=== PATIENT | female | born 1940 | race Caucasian/White ===

== ENCOUNTER 2016-10-11 13:15 | Inpatient (IN) | payer MEDICARE, OTHER ==
[~2016-10-11] VITALS: Ht 157.5 cm; Wt 61.7 kg
[~2016-10-11 13:15] MED LIST: ACET-3820 PO; ASPI81TA28 PO; CIPR500T4 PO; GABA100C PO; METF500T2 PO; METR250T2 PO; TRAM50TA94 PO
[2016-10-11 14:06] VITALS: BP 186/92
--- NOTE | 2016-10-11 17:08 | NUR ---
Patient taken to bed 06 via wheelchair per tech.
--- NOTE | 2016-10-11 17:17 | NUR ---
PT REFERRED TO ER FROM PCP FOR EVALUATION OF SOB X2 DAYS. HX DM, POLYARTHRALGIA, PULMONARY FIBROSIS.PT STATES SHE HAS LITTLE SOB;S/O OF GENERALIZED PAIN . DENIES N/V/D; SKIN IS PINK/WARM/DRY; AAOX4 WITH EVEN AND STEADY GAIT; HR EVEN AND REGULAR; PT DENIES ANY FEVER, CP AT THIS TIME; PATIENT STATES PAIN OF 6/10 AT THIS TIME; PATIENT POSITIONED FOR COMFORT; HOB ELEVATED; BEDRAILS UP X2; BED DOWN.ALL MONITORS IN PLACED.
--- NOTE | 2016-10-11 17:50 | NUR ---
Dr. Hassan evaluating patient.
[2016-10-11] MEDS ORDERED: NACL 0.9% 1,000 ML IV ONE (18:15)
[2016-10-11] MEDS ORDERED: POTASSIUM CHLORIDE 10 MEQ TABER PO ONE (18:15)
[2016-10-11] MEDS ORDERED: LEVOFLOXACIN 500 MG/D5W PREMIX 100 ML IV ONE (18:15)
[2016-10-11 18:30] LABS: BASOPHILS # (AUTO) 0.2 K/uL (0.00-0.22); EOSINOPHILS # (AUTO) 0.1 K/uL (0-0.4); HEMATOCRIT 42.5 % (36-48); HEMOGLOBIN 13.6 g/dL (12.0-16.0); LYMPHOCYTES # (AUTO) 1.9 K/uL (2.5-16.5); MEAN CORPUSCULAR HEMOGLOBIN 26 pg (27-31); MEAN CORPUSCULAR HGB CONC 32 g/dL (33-37); MEAN CORPUSCULAR VOLUME 81 fL (80-94); MONOCYTES # (AUTO) 0.4 K/uL (0.8-1.0); NEUTROPHILS # (AUTO) 2.9 K/uL (1.8-7.7); PLATELET COUNT (AUTO) 194 K/uL (140-450); RED BLOOD CELL COUNT(AUTO) 5.28 MIL/uL (4.20-5.40); RED CELL DISTRIBUTION WIDTH 15.7 % (11.6-13.7); WHITE BLOOD COUNT (AUTO) 5.5 K/uL (4.8-10.8)
--- NOTE | 2016-10-11 18:34 | NUR ---
PT WENT TO RESTROOM ACCOMPANIED BY EMT;
[2016-10-11 18:39] LABS: APPEARANCE,URINE HAZY (CLEAR); BLOOD, URINE TRACE-L (NEGATIVE); COLOR,URINE YELLOW (YELLOW); LEUKOCYTE ESTERASE ,URINE TRACE (NEGATIVE); NITRITE, URINE NEGATIVE (NEGATIVE); PH,URINE 5.5 (5.0-9.0); PROTEIN,URINE 1+ (NEGATIVE); UGLUCOSE NEGATIVE (NEGATIVE); UROBILINOGEN,URINE 0.2 EU/dL (0.2 - 1)
[2016-10-11 18:41] LABS: CARBON DIOXIDE 25.1 mmol/L (21-32); CHLORIDE 102 mmol/L (98-107); SODIUM SERUM 137 mmol/L (136-145)
[2016-10-11 18:42] LABS: ANION GAP 13.9 (8-16); CALCIUM 8.9 mg/dL (8.5-10.1); CREATININE 0.9 mg/dL (0.6-1.3); GLUCOSE 86 mg/dL (74-106); UREA NITROGEN, BLOOD 20 mg/dL (7-18)
[2016-10-11 18:46] LABS: BILIRUBIN,URINE NEGATIVE (NEGATIVE)
[2016-10-11 18:49] LABS: BACTERIA,URINE 4+ /HPF (None Seen); RBC,URINE 0-3 /HPF (0-5)
[2016-10-11 18:53] LABS: ALANINE AMINOTRANSFERASE 11 U/L (14-59); ALBUMIN 3.3 g/dL (3.4-5.0); ALKALINE PHOSPHATASE 79 U/L (46-116); ASPARTATE AMINOTRANSFERASE 20 U/L (15-37); TOTAL BILIRUBIN 0.7 mg/dL (0.0-1.0); TOTAL PROTEIN, SERUM 9.1 g/dL (6.4-8.2)
[2016-10-11] MEDS ORDERED: HYDROcodone/APAP 5/325 MG 1 TAB TAB PO PRN (19:10)
[2016-10-11] MEDS ORDERED: MORPHINE SULFATE 2 MG/ML SYR IVP PRN (19:10)
[2016-10-11] MEDS ORDERED: LORazepam 2 MG/ML VIAL IVP PRN (19:10)
[2016-10-11] MEDS ORDERED: ACETAMINOPHEN 325 MG TAB PO PRN (19:10)
[2016-10-11] MEDS ORDERED: ONDANSETRON 4 MG/2 ML VIAL IVP PRN (19:10)
[2016-10-11] MEDS ORDERED: ALBUTEROL 0.083% 2.5 MG/3 ML NEBU IH PRN (19:10)
--- NOTE | 2016-10-11 19:18 | NUR ---
Pt report given to JEANETH DIAZ. Transfer of care at this time.
--- NOTE | 2016-10-11 19:22 | NUR ---
RECEIVED REPORT FROM JEANETH STALEY FOR TRANSFER OF CARE.
--- NOTE | 2016-10-11 20:10 | NUR ---
Patient will be admitted to care of DR CERVANTES. Admited to TELE. Will go to room 112B. Belongings list completed. Report to JEANETH CAN.
--- NOTE | 2016-10-11 20:15 | NUR ---
PT ARRIVED TO UNIT VIA GURNEY. INITIAL ASSESSMENT COMPLETED. PT AAOX4. PT AMBULATES WITH ASSIST. PT'S SKIN IS INTACT. PT HAS IV ON LEFT AC G 20; ASYMPTOMATIC, PATENT AND INTACT INFUSING FLUIDS WELL. PT DENIES DISCOMFORT AT THIS TIME. ORIENTED PT TO ROOM AND SURROUNDINGS AND USE OF CALL LIGHT. EXPLAINED PLAN OF CARE TO PT AND SHE VERBALIZES UNDERSTANDING. WILL CONTINUE TO MONITOR PT.
--- NOTE | 2016-10-11 20:50 | NUR ---
PT'S BLOOD PRESSURE 180/88, HR 75, T 98.0. 02 SAT 95%. CALLED DR. CERVANTES WHO IS EPIC APPLICATION COORDINATOR FOR DR. MCCARTHY TO NOTIFY HIM OF BLOOD PRESSURE. ORDERS GIVEN NORVASC 10 MG PO DAILY AND ONE DOSE NOW. WILL FOLLOW UP ON ORDERS.
[2016-10-11] MEDS ORDERED: amLODIPine 5 MG TAB PO SCH (21:00)
--- NOTE | 2016-10-11 21:12 | NUR ---
NORVASC 10 MG PO GIVEN ORDERED BY DR. CERVANTES.
[2016-10-11] MEDS ORDERED: cefTRIAXone 1,000 MG VIAL ONE (21:22)
--- NOTE | 2016-10-11 22:26 | NUR ---
PT'S BLOOD PRESSURE IS NOW 178/88, HR 68, T 98.7 02 SAT 95%, R 18. DR. CERVANTES NOTIFIED; NO NEW ORDERS GIVEN.
[2016-10-12] VITALS: BP 153/69
--- NOTE | 2016-10-12 00:05 | NUR ---
PT'S BLOOD PRESSURE IS NOW 153/69, HR 75, T 98.7, R 20. WILL CONTINUE TO MONITOR PT.
--- NOTE | 2016-10-12 00:30 | NUR ---
PT REQUESTED A SANDWICH; SHE STATED SHE WAS HUNGRY. WILL CONTINUE TO MONITOR PT.
--- NOTE | 2016-10-12 03:29 | NUR ---
PT REQUESTING ASSISTANCE TO AMBULATE TO THE RESTROOM. PT BACK IN BED NOW. CALL LIGHT WITHIN REACH.
[2016-10-12 04:00] VITALS: BP 137/64
--- NOTE | 2016-10-12 04:05 | NUR ---
PT WEARING SCDS. EDUCATION PROVIDED REGARDING ON THE IMPORTANCE OF WEARING THEM. PT VERBALIZES UNDERSTANDING.
--- NOTE | 2016-10-12 05:24 | NUR ---
PT AMBULATED TO THE RESTROOM. NO SIGNS OF DISTRESS OR DISCOMFORT NOTED. WILL CONTINUE TO MONITOR PT.
[2016-10-12 05:43] LABS: BASOPHILS # (AUTO) 0.1 K/uL (0.00-0.22); EOSINOPHILS # (AUTO) 0.2 K/uL (0-0.4); EOSINOPHILS % (AUTO) 3.7 % (0.0-4.0); HEMATOCRIT 36.5 % (36-48); HEMOGLOBIN 11.8 g/dL (12.0-16.0); LYMPHOCYTES # (AUTO) 1.8 K/uL (2.5-16.5); LYMPHOCYTES % (AUTO) 30.8 % (20.5-51.1); MEAN CORPUSCULAR HEMOGLOBIN 26 pg (27-31); MEAN CORPUSCULAR HGB CONC 32 g/dL (33-37); MEAN CORPUSCULAR VOLUME 81 fL (80-94); MONOCYTES # (AUTO) 0.5 K/uL (0.8-1.0); MONOCYTES % (AUTO) 8.2 % (1.7-9.3); NEUTROPHILS # (AUTO) 3.4 K/uL (1.8-7.7); NEUTROPHILS % (AUTO) 56.3 % (42.2-75.2); PLATELET COUNT (AUTO) 179 K/uL (140-450); RED BLOOD CELL COUNT(AUTO) 4.53 MIL/uL (4.20-5.40); RED CELL DISTRIBUTION WIDTH 15.9 % (11.6-13.7)
[2016-10-12 06:13] LABS: ANION GAP 13.2 (8-16); CALCIUM 7.9 mg/dL (8.5-10.1); CARBON DIOXIDE 22.6 mmol/L (21-32); CHLORIDE 106 mmol/L (98-107); CREATININE 0.9 mg/dL (0.6-1.3); GLUCOSE 85 mg/dL (74-106); POTASSIUM 3.8 mmol/L (3.5-5.1); SODIUM SERUM 138 mmol/L (136-145); UREA NITROGEN, BLOOD 19 mg/dL (7-18)
--- NOTE | 2016-10-12 07:39 | NUR ---
ENDORSED PLAN OF CARE TO DAY SHIFT RN. PT IN STABLE CONDITION.
--- NOTE | 2016-10-12 07:40 | NUR ---
RECEIVED PT ON BED AWAKE. NO SOB NOTED. NO C/O PAIN AT THIS TIME. IV TO LT AC PATENT AND INTACT. CHEST CLEAR. ABDOMEN SOFT, BOWEL SOUNDS PRESENT. NO EDEMA NOTED. INSTRUCTED PT TO CALL FOR ASSISTANCE, CALL LIGHT WITHIN REACH, PT VERBALIZED UNDERSTANDING.
[2016-10-12 08:17] VITALS: BP 127/61
[2016-10-12] MEDS: ASPIRIN 81 MG TAB.CHEW PO SCH (09:27)
[2016-10-12] MEDS: amLODIPine 5 MG TAB PO SCH (09:27)
[2016-10-12] MEDS: ENOXAPARIN 40 MG/0.4 ML SYR SUBQ SCH (09:28)
--- NOTE | 2016-10-12 09:45 | NUR ---
PATIENT HAS BEEN SCREENED AND CATEGORIZED MODERATE NUTRITION RISK. PATIENT WILL BE SEEN WITHIN 3-5 DAYS OF ADMISSION. 10/14/16-10/16/[address]
--- NOTE | 2016-10-12 10:22 | NUR ---
FAXED INITIAL REVIEW TO [facility]. [phone] PHONE MERLY [phone]. SPOKE WITH MERLY AND SHE IS COVERING FOR [facility] TODAY AND TOMORROW. SHE SAID TO JUST SEND REVIEWS TO [facility].
--- NOTE | 2016-10-12 11:55 | NUR ---
PT AMBULATED TO THE BATHROOM WITH 1 PERSON ASSIST. ACTIVITY TOLERATED WELL. NO SOB NOTED.
[2016-10-12 12:00] VITALS: BP 141/67
[2016-10-12] MEDS ORDERED: MAG SULF 2000 MG/WATER PREMIX 50 ML IV SCH (14:00)
--- NOTE | 2016-10-12 14:00 | NUR ---
PT SEEN BY DR. MCCARTHY WITH NEW ORDERS FOR PHYSICAL THERAPY EVALUATION.
[2016-10-12 16:00] VITALS: BP 135/66
--- NOTE | 2016-10-12 16:55 | NUR ---
PT RESTING. NO SOB NOTED. NO COMPLAINTS MADE.
--- NOTE | 2016-10-12 19:05 | NUR ---
PT SITTING IN THE BEDSIDE COMMODE. NO SOB NOTED. NO SIGNS OF PAIN. WILL ENDORSE TO NEXT SHIFT NURSE FOR CONTINUITY OF CARE.
--- NOTE | 2016-10-12 19:20 | NUR ---
RECEIVED REPORT FROM JEANETH MORAN AT BEDSIDE. INITIAL ASSESSMENT COMPLETED. PT AAOX4. PT AMBULATES WITH ASSIST. PT'S SKIN IS INTACT. PT HAS IV ON LEFT AC G 20; ASYMPTOMATIC, PATENT AND INTACT INFUSING FLUIDS WELL. PT DENIES DISCOMFORT AT THIS TIME. ORIENTED PT TO ROOM AND SURROUNDINGS AND USE OF CALL LIGHT. EXPLAINED PLAN OF CARE TO PT AND SHE VERBALIZES UNDERSTANDING. WILL CONTINUE TO MONITOR PT.
[2016-10-12 20:00] VITALS: BP 148/73
--- NOTE | 2016-10-12 21:44 | NUR ---
PT WEARING SCDS. CALL LIGHT WITHIN REACH.
--- NOTE | 2016-10-12 22:25 | NUR ---
PT STABLE, PT WATCHING TV. CALL LIGHT WITHIN REACH.
[2016-10-13] VITALS: BP 149/68
--- NOTE | 2016-10-13 00:29 | NUR ---
CHECKED PT'S VS. VS STABLE; PT DENIES PAIN OR DISCOMFORT. CALL LIGHT WITHIN REACH.
--- NOTE | 2016-10-13 01:52 | NUR ---
ASSISTED PT TO AMBULATE TO THE RESTROOM. PT BACK IN BED NOW COMFORTABLY. CALL LIGHT WITHIN REACH.
--- NOTE | 2016-10-13 03:15 | NUR ---
CHECKED ON PT. PT SLEEPING COMFORTABLY. NO SIGNS OF DISTRESS OR DISCOMFORT NOTED. WILL CONTINUE TO MONITOR PT.
[2016-10-13 04:00] VITALS: BP 141/74
[2016-10-13 05:46] LABS: BASOPHILS # (AUTO) 0.1 K/uL (0.00-0.22); EOSINOPHILS # (AUTO) 0.2 K/uL (0-0.4); EOSINOPHILS % (AUTO) 3.2 % (0.0-4.0); HEMATOCRIT 36.7 % (36-48); HEMOGLOBIN 12.1 g/dL (12.0-16.0); LYMPHOCYTES # (AUTO) 2.2 K/uL (2.5-16.5); LYMPHOCYTES % (AUTO) 34.1 % (20.5-51.1); MEAN CORPUSCULAR HEMOGLOBIN 27 pg (27-31); MEAN CORPUSCULAR HGB CONC 33 g/dL (33-37); MEAN CORPUSCULAR VOLUME 81 fL (80-94); MONOCYTES # (AUTO) 0.5 K/uL (0.8-1.0); MONOCYTES % (AUTO) 7.8 % (1.7-9.3); NEUTROPHILS # (AUTO) 3.3 K/uL (1.8-7.7); NEUTROPHILS % (AUTO) 53.9 % (42.2-75.2); PLATELET COUNT (AUTO) 169 K/uL (140-450); RED BLOOD CELL COUNT(AUTO) 4.51 MIL/uL (4.20-5.40); RED CELL DISTRIBUTION WIDTH 15.6 % (11.6-13.7); WHITE BLOOD COUNT (AUTO) 6.4 K/uL (4.8-10.8)
--- NOTE | 2016-10-13 05:50 | NUR ---
PT USING BEDSIDE COMMODE, PT STABLE. WILL CONTINUE TO MONITOR PT.
[2016-10-13 06:29] LABS: ALANINE AMINOTRANSFERASE 8 U/L (14-59); ALBUMIN 2.7 g/dL (3.4-5.0); ALKALINE PHOSPHATASE 69 U/L (46-116); ANION GAP 9.8 (8-16); ASPARTATE AMINOTRANSFERASE 16 U/L (15-37); CALCIUM 7.6 mg/dL (8.5-10.1); CHLORIDE 103 mmol/L (98-107); CREATININE 0.8 mg/dL (0.6-1.3); GLUCOSE 100 mg/dL (74-106); POTASSIUM 3.8 mmol/L (3.5-5.1); SODIUM SERUM 134 mmol/L (136-145); TOTAL BILIRUBIN 0.4 mg/dL (0.0-1.0); TOTAL PROTEIN, SERUM 7.7 g/dL (6.4-8.2); UREA NITROGEN, BLOOD 20 mg/dL (7-18)
--- NOTE | 2016-10-13 07:20 | NUR ---
ASSUMED CONTINUITY OF CARE. NO SIGNS AND SYMPTOMS OF ACUTE DISTRESS NOTED, INITIAL ASSESSMENT DONE. KEEP COMFORTABLE ON BED. EXPLAINED DIAGNOSIS, PLAN OF CARE, PAIN MANAGEMENT TEACHING, USE OF CALL LIGHT/BED/TV/BATHROOM. VERBALIZED UNDERSTANDING. FALL PRECAUTION APPLIED. CALL LIGHT WITHIN REACH.
--- NOTE | 2016-10-13 07:20 | NUR ---
ENDORSED PLAN OF CARE TO DAY SHIFT NURSE. PT IN STABLE CONDITION.
--- NOTE | 2016-10-13 07:30 | NUR ---
Patient's Plan of Care was discussed and reviewed with RESEARCH PROFESSOR OF BIOSTATISTICS: TOMMY KENDRICK
[2016-10-13 08:00] VITALS: BP 136/63
--- NOTE | 2016-10-13 08:38 | NUR ---
PT VIOLETA CAME FOR PT. PT EVAL AND TREATMENT.
[2016-10-13] MEDS: ASPIRIN 81 MG TAB.CHEW PO SCH (08:40)
[2016-10-13] MEDS: amLODIPine 5 MG TAB PO SCH (08:41)
[2016-10-13] MEDS: ENOXAPARIN 40 MG/0.4 ML SYR SUBQ SCH (08:45)
--- NOTE | 2016-10-13 10:39 | NUR ---
Social Service Note: I met with patient at bedside. Patient Urdu speaking. Per patient, she would like to return home upon discharge, no short term snf placement, prefers to have home health services, case sealer Good greer.
[2016-10-13 12:00] VITALS: BP 122/54
--- NOTE | 2016-10-13 12:53 | NUR ---
NOTIFIED DR. MCCARTHY REGARDING RESULT OF URINE CULTURE MDRO, AWARE OF THE RESULT.
--- NOTE | 2016-10-13 15:00 | NUR ---
PT. AKIN CHI CAME. PT. AND PT. AKIN CHI WANTED PT. TO BE D/C HOME AND DELIVER FRONT WHEEL WALKER TO [facility]. EXPLAINED PT. AND PT. AKIN CHI ABOUT MD D/C ORDER, D/C INSTRUCTION AND TEACHING, MD FOLLOW-UP, PAIN PAIN MANAGEMENT TEACHING, DIAGNOSIS, DIET. PT. AND PT. AKIN CHI VERBALIZED UNDERSTANDING.
--- NOTE | 2016-10-13 15:35 | NUR ---
D/C VIA WHEELCHAIR WITH ASSISTANCE FROM DANIELLE DIALLO, ACCOMPANIED BY PT. AKIN CampbellBARNEY. AWAKE, ALERT, AND OREINTED X3. SPEECH CLEAR. NO C/O PAIN. NO SOB, NOTED. IN STABLE CONDITION. INFORMED CHARGE NURSE ROMEO HANSEN.
--- NOTE | 2016-10-13 15:42 | NUR ---
CM NOTE CONFIRMED W/ SALLY MORELAND FOR [facility]. TO BE DELIVERED AT NEW ADDRESS BY TOMORROW. TOMMY ERIC MADE AWARE.
== END 2016-10-13 15:35 | disposition home health service (06) | DRG 197 ==
LOC: MED 13:15 → UNDOADMIN 19:12 → MTU 19:12
PROVIDERS: ADMIT Hospitalist; ATTEND Hospitalist
DX: J84.10 Pulmonary fibrosis, unspecified (principal); N39.0 Urinary tract infection, site not specified; I10 Essential (primary) hypertension; E11.9 Type 2 diabetes mellitus without complications; Z95.1 Presence of aortocoronary bypass graft; I25.10 Atherosclerotic heart disease of native coronary artery without angina pectoris; Z79.2 Long term (current) use of antibiotics; Z79.82 Long term (current) use of aspirin; Z79.899 Other long term (current) drug therapy; Z87.891 Personal history of nicotine dependence
CPT/HCPCS: 36415; 71010; 71260; 80048; 80053; 81001; 82550; 82553; 83605; 83735; 84484; 85025; 87081; 87086; 87186; 97116; 99285; J0696; J1650; J1956; J3475; J7030; J7060; Q9967

== ENCOUNTER 2017-06-05 11:32 | Inpatient (IN) | payer MEDICARE, OTHER ==
[~2017-06-05] VITALS: Ht 160 cm; Wt 54.4 kg
[~2017-06-05 11:32] MED LIST changes: -ACET-3820 PO; +ACET-9528 PO; +ASPI81EC PO; -ASPI81TA28 PO; -METR250T2 PO; +TRAM50TA1 PO; -TRAM50TA94 PO
[2017-06-05 11:36] VITALS: BP 116/62
--- NOTE | 2017-06-05 11:46 | NUR ---
PT TO BED 2 VIZ WHEELCHAIR
--- NOTE | 2017-06-05 11:48 | NUR ---
GRANDDTR BRINGS IN PT VIA W/C FOR GENERALIZED WEAKNESS, DIZZINESS AND DECREASED APPETITE X 2 DAYS. PT C/O SOB SINCE LAST NIGHT. DENIES FEVERS/CHILLS. ALSO REPORTS CONGESTION/COUGH. PT AAOX3. DENIES N/V/D; PT CAME IN VIA WHEELCHAIR . DENIES FEVER, CP AT THIS TIME; PATIENT STATES PAIN OF 0/10 AT THIS TIME; VSS; PATIENT POSITIONED FOR COMFORT; HOB ELEVATED; BEDRAILS UP X2; BED DOWN. ER MD MADE AWARE OF PT STATUS.
--- NOTE | 2017-06-05 12:04 | NUR ---
DR. BAKER EVALUATING AT BEDSIDE
[2017-06-05] MEDS ORDERED: NACL 0.9% 1,000 ML IV SCH (12:06)
--- NOTE | 2017-06-05 12:22 | NUR ---
XRAY AT BEDSIDE
--- NOTE | 2017-06-05 12:50 | NUR ---
PT REFUSED TO INSERT MCKENZIE CATH, AWARE. PT AGREES TO USE IN AND OUT CATH TO GET URINE SAMPLE.
[2017-06-05 12:52] LABS: BASOPHILS # (AUTO) 0.2 K/uL (0.00-0.22); BASOPHILS % (AUTO) 1.8 % (0.0-2.0); EOSINOPHILS % (AUTO) 0.3 % (0.0-4.0); HEMOGLOBIN 12.8 g/dL (12.0-16.0); LYMPHOCYTES # (AUTO) 1.4 K/uL (2.5-16.5); MEAN CORPUSCULAR HEMOGLOBIN 26 pg (27-31); MEAN CORPUSCULAR HGB CONC 32 g/dL (33-37); MEAN CORPUSCULAR VOLUME 80 fL (80-94); MONOCYTES # (AUTO) 0.3 K/uL (0.8-1.0); MONOCYTES % (AUTO) 3.7 % (1.7-9.3); NEUTROPHILS # (AUTO) 7.4 K/uL (1.8-7.7); NEUTROPHILS % (AUTO) 79.2 % (42.2-75.2); PLATELET COUNT (AUTO) 161 K/uL (140-450); RED CELL DISTRIBUTION WIDTH 15.5 % (11.6-13.7); WHITE BLOOD COUNT (AUTO) 9.3 K/uL (4.8-10.8)
[2017-06-05] MEDS ORDERED: ALBUTEROL 0.083% 2.5 MG/3 ML NEBU INH ONE (13:05)
[2017-06-05] MEDS ORDERED: LEVOFLOXACIN 500 MG/D5W PREMIX 100 ML IV ONE (13:05)
[2017-06-05] MEDS ORDERED: IPRATROPIUM 0.02% 0.5 MG/2.5 ML NEBU INH ONE (13:05)
[2017-06-05 13:15] LABS: ANION GAP 10.2 (8-16); CARBON DIOXIDE 25.4 mmol/L (21-32); CHLORIDE 101 mmol/L (98-107); GLUCOSE 121 mg/dL (74-106); POTASSIUM 3.6 mmol/L (3.5-5.1); SODIUM SERUM 133 mmol/L (136-145); UREA NITROGEN, BLOOD 40 mg/dL (7-18)
[2017-06-05 13:21] LABS: ALBUMIN 2.5 g/dL (3.4-5.0); ASPARTATE AMINOTRANSFERASE 26 U/L (15-37); TOTAL BILIRUBIN 0.5 mg/dL (0.0-1.0)
[2017-06-05 13:23] LABS: PROTHROMBIN TIME 11.5 secs (10.8-13.4)
[2017-06-05] MEDS ORDERED: OSELTAMIVIR PHOSPHATE 75 MG CAP PO ONE (13:30)
[2017-06-05] MEDS ORDERED: ACETAMINOPHEN 325 MG TAB PO PRN (13:40)
[2017-06-05] MEDS ORDERED: LEVOFLOXACIN 750 MG/D5W PREMIX 150 ML IV SCH (13:40)
[2017-06-05] MEDS ORDERED: ALBUTEROL 0.083% 2.5 MG/3 ML NEBU INH PRN (13:40)
--- NOTE | 2017-06-05 13:41 | NUR ---
RT AT BEDSIDE
[2017-06-05] MEDS ORDERED: HYDROcodone/APAP 5/325 MG 1 TAB TAB PO PRN (13:45)
--- NOTE | 2017-06-05 14:24 | NUR ---
ZITHROMAX 500 MG IN D5 250ML IVPB GIVEN TO PATIENT. PATIENT TOLERATED IT WELL. CHIQUITA GRIGGS AT BEDSIDE. SAFETY PRECAUTION IN PLACE, CALL LIGHT WITHIN REACH, WILL CONTINUE TO MONITOR PATIENT. Addendum: 06/06/17 at 0749 by Keven Leung RN WRONG TIME: [id number]
--- NOTE | 2017-06-05 14:40 | NUR ---
TRANSFERRED PT TO TELE 107 B, REPORT GIVEN TO STEFFANY ERIC. PT VITALS STABLE AT THIS TIME.
[2017-06-05 14:44] LABS: APPEARANCE,URINE CLEAR (CLEAR); BILIRUBIN,URINE NEGATIVE (NEGATIVE); BLOOD, URINE NEGATIVE (NEGATIVE); COLOR,URINE YELLOW (YELLOW); LEUKOCYTE ESTERASE ,URINE NEGATIVE (NEGATIVE); NITRITE, URINE NEGATIVE (NEGATIVE); UGLUCOSE NEGATIVE (NEGATIVE)
[2017-06-05 14:45] VITALS: BP 118/58
[2017-06-05] MEDS ORDERED: DEXTROSE 50% 50 ML SYR IVP PRN (14:45)
[2017-06-05] MEDS ORDERED: INSULIN LISPRO SLIDING SCALE 100 UNITS/ML VIAL SUBQ PRN (14:45)
--- NOTE | 2017-06-05 14:45 | NUR ---
PATIENT ARRIVED ON FLOOR VIA GURNEY ACCOMPANIED BY ER NURSE AND TECH. REPORT RECEIVED AT BEDSIDE FOR CONTINUITY OF CARE FROM ER NURSE. PATIENT ALERT AND ORIENTED. BANGLADESHI SPEAKING ONLY. HERE FOR OBSERVATION FOR DX OF PNA. PATIENT HAS L HAND 20G, INFUSING IVF. IV PATENT, ASYMPTOMATIC, AND INTACT. SKIN INTACT, CRACKLES ON AUSCULTATION OF LUNGS SOUNDS, BOWEL SOUNDS ACTIVE. NO SIGNS OF DISTRESS OR SOB NOTED, PATIENT ON 2L O2 NC, SATURATION AT 95%. TELE MONITOR PUT ON, YELLOW SOCKS PUT ON. ORIENTED PATIENT TO ROOM, CALL LIGHT, AND PHONE. FAMILY MEMBERS AT BEDSIDE. INITIAL ASSESSMENT DONE. WILL AWAIT FOR DOCTOR'S UPCOMING ORDERS. SAFETY PRECAUTION IN PLACE, CALL LIGHT WITHIN REACH, WILL CONTINUE TO MONITOR PATIENT.
[2017-06-05 16:00] VITALS: BP 123/77
[2017-06-05] MEDS: AZITHROMYCIN 500 MG in DEXTROSE 5% 250 ML IV SCH (16:24)
[2017-06-05] MEDS: BLOOD GLUCOSE MONITORING 1 DEV DEV FS SCH ×2 (17:02→21:38)
--- NOTE | 2017-06-05 17:24 | NUR ---
ZITHROMAX 500 MG IN D5 250ML IVPB FINISHED. GRANDDAUGHTER ANSON AT BEDSIDE. SAFETY PRECAUTION IN PLACE, CALL LIGHT WITHIN REACH, WILL CONTINUE TO MONITOR PATIENT.
[2017-06-05] MEDS: BENZONATATE 100 MG CAPLF PO SCH (18:26)
--- NOTE | 2017-06-05 18:26 | NUR ---
ROCEPHIN 1000 MG IN D5 50 ML IVPB GIVEN TO PATIENT. BENZONATATE PO ADMINISTERED TO PATIENT. PATIENT TOLERATED IT WELL. GRANDDAUGHTER ANSON AT BEDSIDE. SAFETY PRECAUTION IN PLACE, CALL LIGHT WITHIN REACH, WILL CONTINUE TO MONITOR PATIENT.
--- NOTE | 2017-06-05 19:06 | NUR ---
ROCEPHIN 1000 MG IN D5 50 ML IVPB FINISHED. PATIENT RESTING IN BED, NOW SALINE LOCKED. SAFETY PRECAUTION IN PLACE, CALL LIGHT WITHIN REACH, WILL CONTINUE TO MONITOR PATIENT.
[2017-06-05] MEDS: ALBUTEROL 0.083% 2.5 MG/3 ML NEBU INH SCH (19:11)
--- NOTE | 2017-06-05 19:15 | NUR ---
REPORT GIVEN TO NOUGAT CANDY MAKER HELPER NURSE AT BEDSIDE FOR CONTINUITY OF CARE. PATIENT IN STABLE CONDITION.
--- NOTE | 2017-06-05 19:19 | NUR ---
RECEIVED PT FROM STEFFANY RN PT POLISH SPEAKER AAOX4 ON BED REST HL ON LEFT HAND PATENT ONTELMETRY SR ON 04 28 LTS VIA NC RESP THERAPY IS HERE AND GIVE BREATHING TX REPOSITIONED INITIAL ASSESSMENT DONE
--- NOTE | 2017-06-05 19:20 | NUR ---
RECEIVED PT FROM STEFFANY RN PT GHANAIAN SPEAKER AAOX4 ON BED REST HL ON LEFT HAND PATENT ON TELEMETRY SR PTUSING BED HOOVER VOIDING WELL ON 04 28 LTS VIA NC NOT DISTRESS NOTED AT THIS TIME RESP THERAPY IS HERE GIVING BREATHIN TX INITIAL ASSESSMENT DONE
[2017-06-05 20:00] VITALS: BP 110/58
--- NOTE | 2017-06-05 20:49 | NUR ---
BLOOD SUGAR 110 NOT COVERAGE
[2017-06-05] MEDS ORDERED: PNEUMOCOCCAL VACCINE 23 MCG/0.5 ML VIAL IMVAC PRN (21:10)
--- NOTE | 2017-06-05 21:30 | NUR ---
BLOOD SUGAR TEST 110 PT EATING HER HS SNACK WELL ON TELEMETRY SR
[2017-06-05] MEDS: GABAPENTIN 300 MG CAP PO SCH (21:39)
--- NOTE | 2017-06-05 22:00 | NUR ---
PT USING BED HOOVER VOIDING WELL ON TELE SR DON SOB NOTED
[2017-06-06] VITALS: BP 138/64
[2017-06-06] MEDS: ALBUTEROL 0.083% 2.5 MG/3 ML NEBU INH SCH ×4 (00:58→18:54)
--- NOTE | 2017-06-06 02:57 | NUR ---
PT HAS ALEXSANDER ASSISTING USING BED HOOVER CONTINENT NOT DISTRESS NOTED HL ON LEFT HAND PATENT SR ON TELEMETRY
[2017-06-06 04:00] VITALS: BP 100/44
--- NOTE | 2017-06-06 05:00 | NUR ---
PT REPOSITIONED NOT DISTRESS NOTED ON TELE SR
--- NOTE | 2017-06-06 05:35 | NUR ---
AT 0535 BLOOD SUGAR 97
[2017-06-06] MEDS: BLOOD GLUCOSE MONITORING 1 DEV DEV FS SCH ×4 (07:16→20:51)
[2017-06-06 07:19] LABS: BASOPHILS # (AUTO) 0.1 K/uL (0.00-0.22); BASOPHILS % (AUTO) 2.1 % (0.0-2.0); EOSINOPHILS # (AUTO) 0.1 K/uL (0-0.4); EOSINOPHILS % (AUTO) 0.9 % (0.0-4.0); HEMATOCRIT 33.3 % (36-48); HEMOGLOBIN 11.1 g/dL (12.0-16.0); LYMPHOCYTES # (AUTO) 1.4 K/uL (2.5-16.5); MEAN CORPUSCULAR HEMOGLOBIN 26 pg (27-31); MEAN CORPUSCULAR HGB CONC 33 g/dL (33-37); MEAN CORPUSCULAR VOLUME 79 fL (80-94); MONOCYTES # (AUTO) 0.5 K/uL (0.8-1.0); NEUTROPHILS # (AUTO) 4.5 K/uL (1.8-7.7); PLATELET COUNT (AUTO) 157 K/uL (140-450); RED CELL DISTRIBUTION WIDTH 14.8 % (11.6-13.7); WHITE BLOOD COUNT (AUTO) 6.6 K/uL (4.8-10.8)
--- NOTE | 2017-06-06 07:21 | NUR ---
PT REMAIN STBLE NOT DISTRESS NOTED REPORT GIVEN TO [place] TO CONTINUITY OF CARE
--- NOTE | 2017-06-06 07:22 | NUR ---
RECEIVED REPORT FROM WHITE SOURER NURSE AT BEDSIDE FOR CONTINUITY OF CARE. PATIENT ASLEEP, BUT AROUSABLE. BULGARIAN SPEAKING ONLY. PATIENT HAS L HAND 20G, SALINE LOCK. IV PATENT, ASYMPTOMATIC, AND INTACT. SKIN INTACT, NO SIGNS OF DISTRESS OR SOB NOTED, PATIENT ON 2L O2 NC, SATURATION AT 98%. SAFETY AND ISOLATION PRECAUTION AND IN PLACE, CALL LIGHT WITHIN REACH, WILL CONTINUE TO MONITOR PATIENT.
[2017-06-06 07:27] LABS: ANION GAP 12.6 (8-16); ASPARTATE AMINOTRANSFERASE 17 U/L (15-37); CARBON DIOXIDE 24.8 mmol/L (21-32); CHLORIDE 102 mmol/L (98-107); CREATININE 0.9 mg/dL (0.6-1.3); GLUCOSE 111 mg/dL (74-106); POTASSIUM 3.4 mmol/L (3.5-5.1); SODIUM SERUM 136 mmol/L (136-145); TOTAL BILIRUBIN 0.4 mg/dL (0.0-1.0); UREA NITROGEN, BLOOD 25 mg/dL (7-18)
[2017-06-06 08:00] VITALS: BP 108/41
[2017-06-06] MEDS ORDERED: metFORMIN 500 MG TAB PO SCH (08:46)
[2017-06-06] MEDS ORDERED: ASPIRIN 81 MG TAB.CHEW PO SCH (09:00)
[2017-06-06] MEDS: GABAPENTIN 300 MG CAP PO SCH ×2 (10:08→20:54)
[2017-06-06] MEDS: ASPIRIN 81 MG TAB.CHEW PO SCH (10:08)
[2017-06-06] MEDS: BENZONATATE 100 MG CAPLF PO SCH ×3 (10:09→17:00)
--- NOTE | 2017-06-06 10:09 | NUR ---
ORDERED MEDICATION ADMINISTERED. PATIENT TOLERATED THEM WELL. PATIENT RESTING IN BED, RESPIRATIONS EVEN AND UNLABORED. NO SIGNS OF DISTRESS OR SOB NOTED. SAFETY AND ISOLATION PRECAUTION IN PLACE, BED ON LOWEST SETTING, BED ALARM ON, CALL LIGHT WITHIN REACH. WILL CONTINUE TO MONITOR PATIENT.
[2017-06-06] MEDS: ENOXAPARIN 40 MG/0.4 ML SYR SUBQ SCH (10:14)
--- NOTE | 2017-06-06 11:29 | NUR ---
PATIENT HAS BEEN SCREENED AND CATEGORIZED MODERATE NUTRITION RISK. PATIENT WILL BE SEEN WITHIN 3-5 DAYS OF ADMISSION. 06/08/17 - 06/10/[address]
[2017-06-06 12:00] VITALS: BP 115/51
[2017-06-06] MEDS ORDERED: POTASSIUM CHLORIDE 10 MEQ TABER PO SCH (12:00)
--- NOTE | 2017-06-06 12:41 | NUR ---
ORDERED MEDICATION ADMINISTERED. PATIENT TOLERATED THEM WELL. PATIENT RESTING IN BED, RESPIRATIONS EVEN AND UNLABORED. NO SIGNS OF DISTRESS OR SOB NOTED. GRANDDAUGHTERS AT BEDSIDE. EDUCATED THEM ABOUT ISOLATION PROTOCOL WITH GOWNS AND GLOVES DUE TO PATIENT'S CONTACT ISOLATION D/T HX OF MDRO IN THE URINE. THEY VERBALIZED UNDERSTANDING. SAFETY AND ISOLATION PRECAUTION IN PLACE, BED ON LOWEST SETTING, BED ALARM ON, CALL LIGHT WITHIN REACH. WILL CONTINUE TO MONITOR PATIENT.
--- NOTE | 2017-06-06 14:10 | NUR ---
PATIENT RESTING IN BED, RESPIRATIONS EVEN AND UNLABORED. NO SIGNS OF DISTRESS OR SOB NOTED. SAFETY AND ISOLATION PRECAUTION IN PLACE, BED ON LOWEST SETTING, BED ALARM ON, CALL LIGHT WITHIN REACH. WILL CONTINUE TO MONITOR PATIENT.
[2017-06-06 15:08] LABS: BASOPHILS # (AUTO) 0.3 K/uL (0.00-0.22); EOSINOPHILS # (AUTO) 0.1 K/uL (0-0.4); HEMATOCRIT 34.8 % (36-48); HEMOGLOBIN 11.2 g/dL (12.0-16.0); LYMPHOCYTES # (AUTO) 2.1 K/uL (2.5-16.5); MEAN CORPUSCULAR HEMOGLOBIN 26 pg (27-31); MEAN CORPUSCULAR HGB CONC 32 g/dL (33-37); MEAN CORPUSCULAR VOLUME 80 fL (80-94); MONOCYTES # (AUTO) 0.5 K/uL (0.8-1.0); NEUTROPHILS # (AUTO) 4.3 K/uL (1.8-7.7); PLATELET COUNT (AUTO) 156 K/uL (140-450); RED BLOOD CELL COUNT(AUTO) 4.37 MIL/uL (4.20-5.40); RED CELL DISTRIBUTION WIDTH 15.4 % (11.6-13.7); WHITE BLOOD COUNT (AUTO) 7.3 K/uL (4.8-10.8)
[2017-06-06] MEDS: AZITHROMYCIN 500 MG in DEXTROSE 5% 250 ML IV SCH (15:59)
[2017-06-06 16:00] VITALS: BP 105/52
--- NOTE | 2017-06-06 16:00 | NUR ---
AZITHROMYCIN IVPB ADMINISTERED. PATIENT TOLERATING IT WELL. PATIENT RESTING IN BED, GRANDDAUGHTERS AT BEDSIDE. RESPIRATIONS EVEN AND UNLABORED. NO SIGNS OF DISTRESS OR SOB NOTED. SAFETY AND ISOLATION PRECAUTION IN PLACE, BED ON LOWEST SETTING, BED ALARM ON, CALL LIGHT WITHIN REACH. WILL CONTINUE TO MONITOR PATIENT.
--- NOTE | 2017-06-06 17:10 | NUR ---
ROCEPHIN IVPB ADMINISTERED. PATIENT TOLERATING IT WELL. PATIENT RESTING IN BED, GRANDDAUGHTERS AT BEDSIDE. RESPIRATIONS EVEN AND UNLABORED. NO SIGNS OF DISTRESS OR SOB NOTED. SAFETY AND ISOLATION PRECAUTION IN PLACE, BED ON LOWEST SETTING, BED ALARM ON, CALL LIGHT WITHIN REACH. WILL CONTINUE TO MONITOR PATIENT. Addendum: 06/06/17 at 1933 by Keven Leung RN EXPLAINED TO PATIENT THAT WE NEED A SPUTUM CULTURE. PATIENT VERBALIZED UNDERSTANDING.
--- NOTE | 2017-06-06 17:37 | NUR ---
FAXED INITIAL REVIEW TO [facility] [phone] PHONE [phone]
--- NOTE | 2017-06-06 19:10 | NUR ---
REPORT GIVEN TO SPLIT AND DRUM ROOM SUPERVISOR NURSE AT BEDSIDE FOR CONTINUITY OF CARE. PATIENT IN STABLE CONDITION.
--- NOTE | 2017-06-06 19:15 | NUR ---
RECEIVED PT FROM STEFFANY RN PT LUXEMBOURGISH SPEAKER AAOX4 NOT DISTRESS NOTED, RESTING ON BED ON TELEMETRY SR RELATIVES AT BED SIDE INITIAL ASSESSMENT DONE
[2017-06-06 20:00] VITALS: BP 129/61
--- NOTE | 2017-06-06 21:30 | NUR ---
BLOOD SUGAR 127 PT REMAIN STABLE AT THIS TIME NOT SOB NOTED ON TELEMETRY SR
[2017-06-07] VITALS: BP 136/67
--- NOTE | 2017-06-07 | NUR ---
PT SLEEPING WELL NOT DISTRESS NOTE, ON TELEMETRY SR HL ON LEFT HAND PATENT REPOSITIONED Q2H
[2017-06-07] MEDS: ALBUTEROL 0.083% 2.5 MG/3 ML NEBU INH SCH ×3 (01:40→13:00)
[2017-06-07 04:00] VITALS: BP 114/58
--- NOTE | 2017-06-07 04:00 | NUR ---
SPONGE BATH GIVEN LINEN CHANGED NOT DISTRESS NOTED ON TELEMETRY SR
[2017-06-07] MEDS: BLOOD GLUCOSE MONITORING 1 DEV DEV FS SCH ×2 (05:30→11:47)
--- NOTE | 2017-06-07 06:44 | NUR ---
PT REMAIN STABLE WILL BE ENDORSED TO DAY SHIFT FOR CONTINUITY OF CARE
[2017-06-07 07:02] LABS: ANION GAP 11.2 (8-16); CARBON DIOXIDE 24.7 mmol/L (21-32); CHLORIDE 103 mmol/L (98-107); CREATININE 0.8 mg/dL (0.6-1.3); GLUCOSE 119 mg/dL (74-106); POTASSIUM 3.9 mmol/L (3.5-5.1); SODIUM SERUM 135 mmol/L (136-145); UREA NITROGEN, BLOOD 22 mg/dL (7-18)
--- NOTE | 2017-06-07 07:10 | NUR ---
ASSUMED CONTINUITY OF CARE. NO SIGNS AND SYMPTOMS OF ACUTE DISTRESS NOTED. INITIAL ASSESSMENT DONE. KEEP COMFORTABLE ON BED. EXPLAINED DIAGNOSIS, PLAN OF CARE, PAIN MANAGEMENT TEACHING, USE OF CALL LIGHT/BED/TV/BATHROOM. VERBALIZED UNDERSTANDING. FALL PRECAUTION APPLIED. CALL LIGHT WITHIN REACH.
[2017-06-07 08:00] VITALS: BP 123/55
[2017-06-07] MEDS ORDERED: metFORMIN 500 MG TAB PO SCH (08:00)
--- NOTE | 2017-06-07 08:00 | NUR ---
Patient's Plan of Care was discussed and reviewed with ANIMAL FEEDER: TOMMY Posada
[2017-06-07] MEDS: BENZONATATE 100 MG CAPLF PO SCH ×2 (08:21→13:53)
[2017-06-07] MEDS: ASPIRIN 81 MG TAB.CHEW PO SCH (08:21)
[2017-06-07] MEDS: ENOXAPARIN 40 MG/0.4 ML SYR SUBQ SCH (08:25)
[2017-06-07] MEDS ORDERED: GABAPENTIN 100 MG CAP PO SCH ×2 (08:30→09:00)
--- NOTE | 2017-06-07 09:35 | NUR ---
DR. BEASLEY SEEN PT. AND SPOKE TO PT. AT BEDSIDE REGARDING PT. D/C.
[2017-06-07] MEDS ORDERED: LEVO500T98 PO (09:49)
[2017-06-07 10:12] LABS: LACTATE DEHYDROGENASE 192 IU/L (119-226)
--- NOTE | 2017-06-07 10:20 | NUR ---
PHYSICAL THERAPIST CAME FOR PT. EVAL AND TREATMENT.
--- NOTE | 2017-06-07 11:10 | NUR ---
UNDERWRITING OPERATIONS MANAGER JHONATAN CAME AND SPOKE TO PT. AT BEDSIDE.
[2017-06-07 12:00] VITALS: BP 117/53
--- NOTE | 2017-06-07 12:29 | NUR ---
CM NOTE PER [facility] PH# [phone], REVIEWS SHOULD BE SENT TO BOTH [facility] AND [facility]. PER [facility] PH# [phone], IF PATIENT WILL NEED HOME HEALTH UPON DISCHARGE, SHE WILL SET IT UP. CONCURRENT REVIEW FAXED TO [facility] [phone] [facility] PH# [phone] AND TO [facility] [phone] [facility] PH# [phone] [phone].
--- NOTE | 2017-06-07 13:25 | NUR ---
AWAKE AND ALERT HFW POSITION PATIENT WITH LUNCH TRAY AT THIS TIME NURSE TRANSITIONAL TO ATTEMPT HHN THERAPY AT A LATER TIME
--- NOTE | 2017-06-07 15:18 | NUR ---
D/C HOME VIA WHEELCHAIR, ACCOMPANIED BY PT. SON AND PT. GRANDDAUGHTER -CAESAR. AWAKE, ALERT, AND ORIENTED X3. SPEECH CLEAR. NO C/O PAIN. NO SOB, NOTED. IN STABLE CONDITION. INFORMED CHARGE NURSE ROMEO HANSEN.
[2017-06-09 07:17] LABS: LD1 FRACTION 17 % (17-32); LD2 FRACTION 36 % (25-40); LD3 FRACTION 27 % (17-27); LD4 FRACTION 12 % (5-13); LD5 FRACTION 8 % (4-20)
== END 2017-06-07 15:18 | disposition home or self-care (01) | DRG 189 ==
LOC: MED 11:32 → MTU 13:54 → OBSVTOIN 06-06 14:51
PROVIDERS: ADMIT Internal Medicine; ATTEND Internal Medicine
DX: J96.00 Acute respiratory failure, unspecified whether with hypoxia or hypercapnia (principal); J84.10 Pulmonary fibrosis, unspecified; E11.9 Type 2 diabetes mellitus without complications; E86.0 Dehydration; M06.9 Rheumatoid arthritis, unspecified; J20.9 Acute bronchitis, unspecified; I10 Essential (primary) hypertension; I25.10 Atherosclerotic heart disease of native coronary artery without angina pectoris; B34.9 Viral infection, unspecified; E78.5 Hyperlipidemia, unspecified; M19.90 Unspecified osteoarthritis, unspecified site; Z87.81 Personal history of (healed) traumatic fracture; Z95.1 Presence of aortocoronary bypass graft; Z87.891 Personal history of nicotine dependence
CPT/HCPCS: 99218; 99285; G0378; 36415; 36600; 71045; 80048; 80053; 81003; 82550; 82553; 82803; 82948; 83036; 83605; 83625; 83874; 83880; 84484; 85025; 85610; 85651; 85730; 86430; 87040; 87081; 87086; 87804; 93005; 94640; 97140; C1758; J0456; J0696; J1650; J1815; J1956; J7030; J7060; J7613; J7644; Q0092

== ENCOUNTER 2019-04-01 15:35 | Inpatient (IN) | payer BC, OTHER ==
[~2019-04-01] VITALS: Ht 144.8 cm; Wt 37.6 kg
[2019-04-01] VITALS (8 sets, daily range): BP systolic 82–127; BP diastolic 46–68
[~2019-04-01 15:35] MED LIST changes: -CIPR500T4 PO; +LEVO500T98 PO
--- NOTE | 2019-04-01 15:42 | NUR ---
BIBA FROM HOME C/O SOB STARTING TODAY, PT WAS 90'S ON ROOM AIR, EMS REPORTED CRACKLES AND RALES, PT WAS PLACED ON OXYGEM VIA MASK AND THEN PT PLACED ON CPAP, WHICH IMPROVED 96% HX PNA, DM, CHF, UT . DENIES N/V/D; SKIN IS PINK/WARM/DRY; AWAKE, ALERT.DEEP BREATHING. HR EVEN AND REGULAR; NO FEVER, COUGH NOTED AT THIS TIME;PT HYPOTENSIVE. PATIENT POSITIONED FOR COMFORT; HOB ELEVATED; BEDRAILS UP X2; BED DOWN. ER MD MADE AWARE OF PT STATUS.FAMILY AT BEDSIDE.
--- NOTE | 2019-04-01 15:50 | NUR ---
PT BIBA ON CPAP 5 PLACED ON VISION BIPAP SETTINGS 14\7 RR 18 FIO2 50% ALARMS ON AND AUDIBLE AND B\S ARE EXP WHEEZING BILATERALLY PT IS WEARING MED FACE MASK PT IS VERY AGITATED AT THIS TIME,
[2019-04-01] MEDS ORDERED: NACL 0.9% 1,000 ML IV SCH (15:58)
[2019-04-01] MEDS ORDERED: HYDR12.51 PO (16:12)
[2019-04-01] MEDS ORDERED: HYDR100T79 PO (16:12)
[2019-04-01] MEDS ORDERED: LOSA100T1 PO (16:12)
[2019-04-01] MEDS ORDERED: cefTRIAXone 1,000 MG VIAL ONE (16:17)
--- NOTE | 2019-04-01 17:00 | NUR ---
PT RESPIRATION RATE DECREASED TO 30S. PT SBP INCREASED TO 100S.
[2019-04-01 17:16] LABS: BASOPHILS # (AUTO) 0.1 K/uL (0.00-0.22); BASOPHILS % (AUTO) 0.5 % (0.0-2.0); HEMATOCRIT 38.1 % (36-48); LYMPHOCYTES % (AUTO) 8.5 % (20.5-51.1); MEAN CORPUSCULAR HEMOGLOBIN 26 pg (27-31); MEAN CORPUSCULAR HGB CONC 31 g/dL (33-37); MEAN CORPUSCULAR VOLUME 83.6 fL (80-94); MONOCYTES # (AUTO) 0.6 K/uL (0.8-1.0); MONOCYTES % (AUTO) 4.9 % (1.7-9.3); NEUTROPHILS # (AUTO) 9.9 K/uL (1.8-7.7); NEUTROPHILS % (AUTO) 86.1 % (42.2-75.2); PLATELET COUNT (AUTO) 234 K/uL (140-450); RED BLOOD CELL COUNT(AUTO) 4.56 MIL/uL (4.20-5.40); RED CELL DISTRIBUTION WIDTH 16.5 % (11.6-13.7); WHITE BLOOD COUNT (AUTO) 11.5 K/uL (4.8-10.8)
[2019-04-01 17:29] LABS: ANION GAP 12.3 (8-16); CARBON DIOXIDE 27.7 mmol/L (21-32); CHLORIDE 102 mmol/L (98-107); CREATININE 1.4 mg/dL (0.6-1.3); GLUCOSE 113 mg/dL (74-106); SODIUM SERUM 138 mmol/L (136-145); UREA NITROGEN, BLOOD 41 mg/dL (7-18)
[2019-04-01 17:35] LABS: ALBUMIN 2.4 g/dL (3.4-5.0); ASPARTATE AMINOTRANSFERASE 15 U/L (15-37); TOTAL BILIRUBIN 0.6 mg/dL (0.0-1.0)
--- NOTE | 2019-04-01 18:30 | NUR ---
PT RESPRATION RATE 30S. BP AND HR IN NORMAL RANGE. FAMILY AT BEDSIDE.
[2019-04-01] MEDS ORDERED: methylPREDNISolone SS 125 MG/2 ML VIAL IVP ONE (18:35)
[2019-04-01] MEDS ORDERED: DEXMEDETOMIDINE HCL 200 MCG in NACL 0.9% 48 ML IV PRN (19:05)
[2019-04-01] MEDS ORDERED: MORPHINE SULFATE 4 MG/ML SYR IVP PRN (19:05)
[2019-04-01] MEDS ORDERED: ONDANSETRON 4 MG/2 ML VIAL IVP PRN (19:05)
[2019-04-01] MEDS ORDERED: LORazepam 2 MG/ML VIAL IVP PRN (19:05)
[2019-04-01] MEDS ORDERED: HYDROcodone/APAP 5/325 MG 1 TAB TAB PO PRN (19:05)
[2019-04-01] MEDS ORDERED: ACETAMINOPHEN 325 MG TAB PO PRN (19:05)
--- NOTE | 2019-04-01 19:10 | NUR ---
ENDORSED TO PM SHIFT RN.
--- NOTE | 2019-04-01 19:41 | NUR ---
PATIENT ALERT AND AWAKE, BREATHING ON BIPAP LABORED AND EVEN
--- NOTE | 2019-04-01 20:00 | NUR ---
PATIENT ALERT AND ORIENTED, BREATHING EVEN AND LABORED, SKIN WARM AND DRY. PATIENT ON BIPAP, SAO2 98%, RR 38
[2019-04-01] MEDS ORDERED: HALOPERIDOL IM 5 MG/ML VIAL IM PRN (20:10)
--- NOTE | 2019-04-01 20:30 | NUR ---
Patient will be admitted to care of DR PERRY. Admited to ICU. Will go to room 3. Belongings list completed. Report to JANETH ERIC.
[2019-04-01] MEDS ORDERED: ENOXAPARIN 40 MG/0.4 ML SYR SUBQ SCH (21:00)
[2019-04-01 21:09] LABS: APPEARANCE,URINE CLEAR (CLEAR); BILIRUBIN,URINE NEGATIVE (NEGATIVE); BLOOD, URINE NEGATIVE (NEGATIVE); COLOR,URINE YELLOW (YELLOW); LEUKOCYTE ESTERASE ,URINE NEGATIVE (NEGATIVE); NITRITE, URINE NEGATIVE (NEGATIVE); PH,URINE 5.5 (5.0-9.0); UGLUCOSE NEGATIVE (NEGATIVE)
--- NOTE | 2019-04-01 21:10 | NUR ---
PATIENT TRANSFERRED TO ICU ON SIMPLE MASK AT 6LPM. ABG DRAWN. RESULTS CALLED INTO DR. WHITTEN. PATIENT PLACED BACK ON BIPAP AT DOCUMENTED SETTINGS. VISITORS AT BEDSIDE. WILL CONTINUE TO MONITOR.
[2019-04-01] MEDS ORDERED: PIPERACILLIN/TAZOBACTAM 2.25 GM VIAL IV ONE (23:12)
[2019-04-01] MEDS: PIPERACILLIN/TAZOBACTAM 2.25 GM in DEXTROSE 5% 50 ML IV SCH (23:47)
[2019-04-01] MEDS: FUROSEMIDE 100 MG/10 ML VIAL IVP SCH (23:48)
[2019-04-02] VITALS (34 sets, daily range): BP systolic 86–120; BP diastolic 41–60
--- NOTE | 2019-04-02 03:30 | NUR ---
PATIENT REMOVED BIPAP MASK. PLACED ON SIMPLE MASK AT 6 LPM. WILL CONTINUE TO MONITOR.
[2019-04-02] MEDS ORDERED: methylPREDNISolone SS 125 MG/2 ML VIAL IVP SCH (05:00)
[2019-04-02] MEDS ORDERED: PIPERACILLIN/TAZOBACTAM 2.25 GM VIAL IV ONE (05:29)
--- NOTE | 2019-04-02 05:42 | NUR ---
PLACED ON 2L NASAL CANNULA, PULSE OX SAT 95%. WILL CONTINUE TO MONITOR.
[2019-04-02] MEDS: FUROSEMIDE 100 MG/10 ML VIAL IVP SCH (05:43)
[2019-04-02] MEDS: PIPERACILLIN/TAZOBACTAM 2.25 GM in DEXTROSE 5% 50 ML IV SCH ×4 (06:05→23:18)
[2019-04-02 07:09] LABS: BASOPHILS % (AUTO) 0.1 % (0.0-2.0); HEMATOCRIT 37.7 % (36-48); HEMOGLOBIN 11.8 g/dL (12.0-16.0); LYMPHOCYTES # (AUTO) 0.9 K/uL (2.5-16.5); LYMPHOCYTES % (AUTO) 7.5 % (20.5-51.1); MEAN CORPUSCULAR HEMOGLOBIN 26 pg (27-31); MEAN CORPUSCULAR HGB CONC 31 g/dL (33-37); MEAN CORPUSCULAR VOLUME 84.4 fL (80-94); MONOCYTES # (AUTO) 0.1 K/uL (0.8-1.0); MONOCYTES % (AUTO) 0.6 % (1.7-9.3); NEUTROPHILS # (AUTO) 10.9 K/uL (1.8-7.7); NEUTROPHILS % (AUTO) 91.8 % (42.2-75.2); PLATELET COUNT (AUTO) 225 K/uL (140-450); RED BLOOD CELL COUNT(AUTO) 4.47 MIL/uL (4.20-5.40); WHITE BLOOD COUNT (AUTO) 11.8 K/uL (4.8-10.8)
--- NOTE | 2019-04-02 08:30 | NUR ---
PATIENT HAS BEEN SCREENED AND CATEGORIZED HIGH NUTRITION RISK. PATIENT WILL BE SEEN WITHIN 1-2 DAYS OF ADMISSION. 04/02/19-04/03/[address]
[2019-04-02] MEDS: hydrALAZINE 25 MG TAB PO SCH ×3 (09:00→17:00)
[2019-04-02 09:17] LABS: ANION GAP 16.9 (8-16); CARBON DIOXIDE 25.5 mmol/L (21-32); CHLORIDE 102 mmol/L (98-107); CREATININE 1.4 mg/dL (0.6-1.3); GLUCOSE 144 mg/dL (74-106); POTASSIUM 4.4 mmol/L (3.5-5.1); SODIUM SERUM 140 mmol/L (136-145); TOTAL BILIRUBIN 0.5 mg/dL (0.0-1.0); UREA NITROGEN, BLOOD 50 mg/dL (7-18)
[2019-04-02 09:18] LABS: ALBUMIN 2.3 g/dL (3.4-5.0); ASPARTATE AMINOTRANSFERASE 16 U/L (15-37); MAGNESIUM 1.8 mg/dL (1.8-2.4)
[2019-04-02] MEDS: ECOTRIN 81 MG TABEC PO SCH (10:10)
[2019-04-02] MEDS: ENOXAPARIN 30 MG/0.3 ML SYR SUBQ SCH (10:11)
--- NOTE | 2019-04-02 10:20 | NUR ---
ABG RESULTS READ BACK TO AND ORDERED TO PLACE PT BACK ON BIPAP FOR 2HOURS THEN 2HOURS OFF PT TOLERATES .
[2019-04-02] MEDS: DEXT 5% /NACL 0.9% 1,000 ML IV SCH (10:31)
--- NOTE | 2019-04-02 11:00 | NUR ---
WE DID REPORT ABNORMAL ABG TO . WE THEN SUBSEQUENTLY TALKED THE PT INTO INTERMITTENT BIPAP APPLICATION. THE PT FELL ASLEEP WITH THE BIPAP ON FOR ABOUT THREE HOURS.
--- NOTE | 2019-04-02 11:30 | NUR ---
*S.T. BEDSIDE SWALLOW EVAL COMPLETED* See report for details. Pt presents w/ moderate oropharyngeal dysphagia c/b prolonged oral prep and mastication of solids w/ labial spillage and lingual deviation to R side oral mech exam, and delayed pharyngeal swallow initiation. No overt s/s aspiration were observed, however. Pt is not able to self-feed and requires a feeder. Recommend: 1) Advance to mechanical soft ground diet, thin liquids okay. Straws okay. 2) P.O. meds crushed and mixed w/ puree such as applesauce. 3) 1:1 feeder w/ aspiration precautions. Pt appears to be functioning at her reported baseline. No further tx indicated at this time. DC to ns care. Results/recs d/w pt. No family present at time of eval. Endorsed to men's locker room attendant and viscose cellar charge hand Ellen. Time [id number]
--- NOTE | 2019-04-02 12:29 | NUR ---
pt off bipap placed on 2lnc
[2019-04-02] MEDS: Z-GUARD PASTE TP SCH (12:37)
--- NOTE | 2019-04-02 14:00 | NUR ---
A HOSPICE ICT MANAGERS CALLED ME AND LET ME KNOW THAT THE PT WAS ON HOSPICE WHEN SHE CAME HERE. YES SHE IS NOW A FULL CODE. I INFORMED THE CHARGE NURSE. I WILL LATER MAKE SURE THE LAB NURSE NURSED ARE ALSO INFORMED. VS REMAIN WITHIN DESIRED LIMITS.
--- NOTE | 2019-04-02 14:25 | NUR ---
04/02/19 RD INITIAL ASSESSMENT COMPLETED PLEASE REFER TO NUTRITION ASSESSMENT UNDER CARE ACTIVITY FOR ESTIMATED NUTRITIONAL NEEDS. 1. RECOMMEND CCHO 60GM CARDIAC MECHANICAL SOFT DIET TOLERATED 2. RECOMMEND GLUCERNA BID 3. PENDING WOUND CARE EVALUATION FOR DIETARY SUPPLEMENT RECOMMENDATIONS 4. RD TO FOLLOW-UP 2-3 DAYS, HIGH RISK SVITLANA JIMENEZ RD
--- NOTE | 2019-04-02 15:00 | NUR ---
LASHANDA assessment/discharge plan High Risk DC Screen Yes Name: Jonathan Bhatti Home Relationship: son Pre-Admission Living Arrangements: Lives with Other Other: sons: Lee and Rich Prior ADL Needs Assistance Current DME/02 Name/Tel: wheelchair, home O2 Current Hospice Name/Tel: [facility] Healthcare Decision Maker: Next of Kin Other: Jonathan Bhatti Advance Directive No Information Taught: Community Resources Person Taught: Family Teaching Tools: Community Resources Verbal Factors Affecting Learning: None Participation Level: Active Evaluation: Gestures Understanding Verbalizes Understanding Educator: LASHANDA Winters Discipline: Case Mgt/Social Svcs Tentative Discharge Plan Summary: Patient is an 79 year old female admitted for chf exacerbation. I met with patient's graddaughter Masha Griffin. Masha speaks Maltese and Guatemalan. She called her father Jonathan Bhatti (patient's son). Jonathan speaks Guatemalan. I obtained information from both Masha and Jonathan. Jonathan is patient's health care decision maker. Patient does not have an Advance Directive. Jonathan is patient's [facility] caregiver. Masha changes patient's diapers at home. Jonathan stated patient is non-ambulatory. Jonathan told me he does not want patient to go to snf if MD recommends short term snf placement because she will become depressed. He stated patient was receiving hospice services from [facility] prior to hospital admission. I provided Masha with education on [employer], [email or web address] for community resources. I provided Jonathan and Masha with my contact information. They do not have any questions/concerns at this time. [facility] and/or [facility] will follow up as needed. Signature: LASHANDA Winters Date: Apr 02, 2019
--- NOTE | 2019-04-02 16:27 | NUR ---
OFF BIPAP ON 3LNC
--- NOTE | 2019-04-02 18:00 | NUR ---
PT ONLY SPEAKS [place] AND IS A/O X1. SHE COOPERATIVE ON 2L NC. SHE HAS BEEN REFUSING HER BIPAP. VS WITHIN DESIRED LIMITS.
--- NOTE | 2019-04-02 19:00 | NUR ---
PT AWAKE AND ALERT X1, NO SIGNS OF ACUTE DISTRESS, ON O2 3L VIA NC. NOTED SACRO COCCYX PRESSURE WOUND, WITH MEPILEX DRESSING INTACT AND DRY, ENCOURAGE TO TURN AND REPOSITION Q2H. MCKENZIE CATHETER IN PLACE, IV INTACT AND PATENT WITH D5NS AT 50ML/HR. DENIES OF ANY PAIN AT THIS TIME, FAMILY AT BEDSIDE, EDUCATED WITH PT ON CONTINUING PLAN OF CARE. ABLE TO VERBALIZE UNDERSTANDING. SAFETY PRECAUTIONS MAINTAINED, CALL LIGHT WITHIN REACH.
--- NOTE | 2019-04-02 19:08 | NUR ---
RECEIVED PATIENT ON 3L NASAL CANNULA. TITRATED TO 2L, PULSE OX SAT 97%. FAMILY VISITING AT BEDSIDE. WILL CONTINUE TO MONITOR.
--- NOTE | 2019-04-02 20:30 | NUR ---
bm noted; pt cleaned.all linens changed. denies pain.still on 02nc at 2lpm.repositioned
--- NOTE | 2019-04-02 22:00 | NUR ---
phone call made to ananth,pts son; pt wants to talk to ananth.as per pt and son's conversation; ananth told the bond writer that pt wants the daughter girish to come here, ananth gave girish's number [phone]; called that number.no answer.
--- NOTE | 2019-04-02 23:30 | NUR ---
called again pts daughter girish; still no answer. called ananth, also no answer
[2019-04-03] VITALS (12 sets, daily range): BP systolic 88–116; BP diastolic 34–53
[2019-04-03] MEDS: Z-GUARD PASTE TP SCH ×2 (00:04→13:00)
--- NOTE | 2019-04-03 02:13 | NUR ---
pt still awake asking for her son and daughter, phone called made to girish,still no answer.no voicemail available.on 02nc at 2lpm.denies pain. pt requesting to eat; given pudding.tolerated.repositioned.
[2019-04-03] MEDS: PIPERACILLIN/TAZOBACTAM 2.25 GM in DEXTROSE 5% 50 ML IV SCH ×3 (05:12→17:58)
--- NOTE | 2019-04-03 05:36 | NUR ---
OFFERED PT TO CHANGE GOWN AND DO BEDSIDE CARE, PT REFUSED AT THIS TIME. CONTINUE TO MONITOR.
[2019-04-03] MEDS: DEXT 5% /NACL 0.9% 1,000 ML IV SCH ×2 (05:46→21:00)
[2019-04-03 06:49] LABS: HEMATOCRIT 32.6 % (36-48); HEMOGLOBIN 10.2 g/dL (12.0-16.0); LYMPHOCYTES # (AUTO) 0.8 K/uL (2.5-16.5); LYMPHOCYTES % (AUTO) 6.1 % (20.5-51.1); MEAN CORPUSCULAR HEMOGLOBIN 26 pg (27-31); MEAN CORPUSCULAR HGB CONC 31 g/dL (33-37); MEAN CORPUSCULAR VOLUME 83.7 fL (80-94); MONOCYTES # (AUTO) 0.4 K/uL (0.8-1.0); MONOCYTES % (AUTO) 2.6 % (1.7-9.3); NEUTROPHILS # (AUTO) 12.4 K/uL (1.8-7.7); NEUTROPHILS % (AUTO) 91.3 % (42.2-75.2); PLATELET COUNT (AUTO) 223 K/uL (140-450); RED CELL DISTRIBUTION WIDTH 15.8 % (11.6-13.7); WHITE BLOOD COUNT (AUTO) 13.6 K/uL (4.8-10.8)
--- NOTE | 2019-04-03 07:30 | NUR ---
RECEIVE REPORT FROM THE DIRECTOR OF DIGITAL PLATFORMS PT IS SLEEPING BUT RESPONSE TO BENSON COMMANT SKIN DRY WARM TO TOUCH , O2 2L NC O2 SAT96% IV FLUID ON RT ARM AND HAND INFUSING D5 NS AT 50ML/HR.. ABDOMEN SOFT BOWEL SOUND ACTIVE.. MCKENZIE CATH. DRAIN FERMIN URINE.
--- NOTE | 2019-04-03 07:45 | NUR ---
RECIVED PT OFF BIPAP ON 2LPM NC NO RESP DISTRESS HAS BEEN REFUSING BIPAP WILL CONTINUE TO MONITOR PT RN AWARE
--- NOTE | 2019-04-03 08:00 | NUR ---
REPOSITION ORAL CARE GIVEN.
[2019-04-03] MEDS: hydrALAZINE 25 MG TAB PO SCH ×3 (09:00→17:57)
[2019-04-03] MEDS: methylPREDNISolone SS 40 MG/ML VIAL IVP SCH (09:17)
[2019-04-03] MEDS: ENOXAPARIN 30 MG/0.3 ML SYR SUBQ SCH (09:18)
[2019-04-03] MEDS: ECOTRIN 81 MG TABEC PO SCH (09:19)
--- NOTE | 2019-04-03 10:30 | NUR ---
SEEN BY JOSÉ MIGUEL RDZ CONTINUE CLOSE OBSERVATION IN ICU.
[2019-04-03 10:40] LABS: ANION GAP 13.1 (8-16); CARBON DIOXIDE 26.3 mmol/L (21-32); CHLORIDE 102 mmol/L (98-107); GLUCOSE 171 mg/dL (74-106); POTASSIUM 3.4 mmol/L (3.5-5.1); SODIUM SERUM 138 mmol/L (136-145)
[2019-04-03 10:50] LABS: CREATININE 1.5 mg/dL (0.6-1.3); UREA NITROGEN, BLOOD 66 mg/dL (7-18)
--- NOTE | 2019-04-03 13:00 | NUR ---
WOUND CARE , REDNESS AREA ON SACROCOCCYGEAL AREA, Z- GUARD APPLY TO THE AREA,
--- NOTE | 2019-04-03 13:45 | NUR ---
WAKE UP EAT LUNCH , LIKE TO EAT MEAT NO DISTRESS NOTED.
--- NOTE | 2019-04-03 13:50 | NUR ---
WOUND CARE EVALUATION NOTE: REASON FOR EVALUATION: SACRALCOCCYX WOUND SKIN ASSESSMENT DONE WITH THIS 79 Y/O MALE PT ADMITTED FROM [facility] TO [facility] WITH INITIAL DX OF SOB AND MALNUTRITION. PT. ADMITTED WITH PRESSURE ULCER TO [facility] AN RIGHT GREAT TOE. PAST MEDICAL HX INCLUDES HTN AND OSTEOARTHRITIS. ALL ABOVE INFORMATION OBTAINED FROM ADMISSION H&P. PT IS AWAKE. SKIN IS WARM AND DRY, DRY LIPS AND POOR SKIN TURGOR. BLE NO HAIR GROWTH, NO EDEMA TO BILATERAL LOWER LEGS. BILATERAL DORSAL PEDAL PULSES PRESENT AND NORMAL. PLAN OF CARE DISCUSSED WITH PRIMARY RN AND PT. PT. VERBALIZING UNDERSTANDING AND NEED REINFORCEMENT. INTEGUMENTARY: -SKIN DRYNESS TO BLE -BLANCHABLE REDNESS TO RIGHT GREAT TOE, 1X1CM ASHA WOUND SKIN INTACT -PRESSURE ULCER STAGE 2 TO SACRAL, 0.3X0.2CM WOUND BED IS PALE PINK, MOIST, NO ODOR, WITH SURROUNDING REDNESS 3X3 CM AND ASHA WOUND SKIN INTACT, PAIN 0/10 RECOMMENDATIONS: -CLEANSE SACRAL ULCER WITH NS, PAT DRY, APPLY Z-GUARD AND COVER WITH OPTIFOAM QD AND PRN IF SOILING -APPLY BODY LOTIONS TO BLE DRY SKIN BID AND LEAVE IT SILVERIO -OFFLOAD BILATERAL HEELS BY PLACING PILLOWS UNDER CALVES UNLESS OTHERWISE CONTRAINDICATED -PRESSURE REDISTRIBUTION SURFACE THERAPY -TURN AND REPOSITION Q2H, OFFLOAD SACRALCOCCYX BY TURNING RIGHT AND LEFT -CONTINUE TO FOLLOW RD RECOMMENDATIONS ALL ABOVE RECOMMENDATIONS DISCUSSED WITH PRIMARY RN WILL FOLLOW UP PT Q7-10 DAYS. PLEASE CONTACT WOUND CARE NURSE FOR ANY QUESTION AND CHANGE OF WOUND CONDITION.
--- NOTE | 2019-04-03 16:00 | NUR ---
REPOSTION ORAL CARE GIVEN AWAKE AND ALERT.
--- NOTE | 2019-04-03 17:00 | NUR ---
hold APRESOLINE DUE TO LOW BP.
[2019-04-03] MEDS: ALBUTEROL 0.083% 2.5 MG/3 ML NEBU INH PRN (19:27)
--- NOTE | 2019-04-03 19:30 | NUR ---
REPORT GIVEN BY HIEU ERIC AM SHIFT. PT IS AWAKE, ALERT ORIENTED X1, MUMBLING. CONT ON O2 AT 2LPM VIA N/C TOLERATING WELL WITH SPO2 98%.NO S/S OF RESP DISTRESS, NO SOB NOTED. BILATERAL LUNGS SOUND COARSE, INTERMITTENT COUGHING NOTED.SR ON MONITORING. IV LINE TO RIGHT HAND NO 20 AND RIGHT FOREARM NO 20 ,BOTH LINES INTACT WELL. IV D5 IN NS AT 75 CC/HR ORDER. PER REPORT MAY CHECK ABG IF PLAN TO TRANSFER TO TELE PER .SKIN WARM TO TOUCH. ABD SOFT NON DISTENDED. F/C IN PLACE WITH YELLOW CLEAR URINE DRAINAGE BY GRAVITY.KEPT PT CLEAN AND DRY. CALL LIGHT IN REACH.
--- NOTE | 2019-04-03 20:00 | NUR ---
CHECK ABG FOR PT PER MD RECOMMENDATION
--- NOTE | 2019-04-03 20:10 | NUR ---
DR VARGAS MADE AWARE THE RESULT OF ABG. ORDER TO REPEAT ABG IN 1 HOUR AND PUT PT BACK ON BIPAP WITH SETTING 12/6 RATE 14 AND FIO2 40 %.
--- NOTE | 2019-04-03 20:15 | NUR ---
2ND ABG RESULT REPORTING TO PER MD TO CHANGE BIPAP RATE TO 18/6,RATE 14 AND FIO2 30%. ATIVAN 1 MG X1 FOR HYPERVENTILATION RESP RATE 40X/MIN. ABG RECHECK AFTER 1 HOUR. Addendum: 04/03/19 at 2227 by Jumana Correia RN ERROR ENTER
--- NOTE | 2019-04-03 20:30 | NUR ---
COME TO SEE PT.
--- NOTE | 2019-04-03 21:30 | NUR ---
BARNEY REYES THE SON COME TO SEE PT AND UP DATE PT CONDITION TO THE SON.
--- NOTE | 2019-04-03 22:15 | NUR ---
2ND ABG RESULT REPORTING TO PER MD TO CHANGE BIPAP RATE TO 18/6,RATE 14 AND FIO2 30%. ATIVAN 1 MG X1 FOR HYPERVENTILATION RESP RATE 40X/MIN. ABG RECHECK AFTER 1 HOUR.
[2019-04-03] MEDS ORDERED: LORazepam 2 MG/ML VIAL IM/IVP SCH (22:19)
--- NOTE | 2019-04-03 22:27 | NUR ---
REPORT GIVEN TO ANUSHA RN TO CONTINUE THE CARE.
--- NOTE | 2019-04-03 22:30 | NUR ---
RECEIVED PATIENT WITH HOB ELEVATED TO 30 DEGREE; SEDATED WITH IVP ATIVAN.
--- NOTE | 2019-04-03 23:50 | NUR ---
ABG DONE BY THE RT; BIPAP SETTING ADJUSTED BY THE RT FOLLOWS RATE 18 I/E 17/6 FIO2 40%.
[2019-04-04] VITALS (12 sets, daily range): BP systolic 99–156; BP diastolic 40–65
[2019-04-04] MEDS: PIPERACILLIN/TAZOBACTAM 2.25 GM in DEXTROSE 5% 50 ML IV SCH ×4 (00:19→17:38)
[2019-04-04] MEDS: Z-GUARD PASTE TP SCH ×2 (04:00→12:05)
--- NOTE | 2019-04-04 04:00 | NUR ---
MORNING BED BATH DONE; PATIENT MUMBLES WHILE WE TURNED AND REPOSITIONED HER.
[2019-04-04 06:11] LABS: HEMATOCRIT 31.9 % (36-48); LYMPHOCYTES # (AUTO) 1.2 K/uL (2.5-16.5); MEAN CORPUSCULAR HEMOGLOBIN 27 pg (27-31); MEAN CORPUSCULAR HGB CONC 31 g/dL (33-37); MEAN CORPUSCULAR VOLUME 84.5 fL (80-94); MONOCYTES # (AUTO) 0.7 K/uL (0.8-1.0); MONOCYTES % (AUTO) 6.2 % (1.7-9.3); NEUTROPHILS % (AUTO) 82.8 % (42.2-75.2); PLATELET COUNT (AUTO) 211 K/uL (140-450); RED BLOOD CELL COUNT(AUTO) 3.77 MIL/uL (4.20-5.40); RED CELL DISTRIBUTION WIDTH 15.7 % (11.6-13.7); WHITE BLOOD COUNT (AUTO) 10.9 K/uL (4.8-10.8)
[2019-04-04 07:02] LABS: ANION GAP 7.2 (8-16); CARBON DIOXIDE 31.6 mmol/L (21-32); CHLORIDE 108 mmol/L (98-107); CREATININE 1.2 mg/dL (0.6-1.3); GLUCOSE 137 mg/dL (74-106); POTASSIUM 3.8 mmol/L (3.5-5.1); SODIUM SERUM 143 mmol/L (136-145); UREA NITROGEN, BLOOD 60 mg/dL (7-18)
[2019-04-04] MEDS: ALBUTEROL 0.083% 2.5 MG/3 ML NEBU INH PRN (07:07)
--- NOTE | 2019-04-04 07:10 | NUR ---
ENDORSED TO AM SHIFT JEANETH MERA FOR CONTINUITY OF CARE.
--- NOTE | 2019-04-04 07:30 | NUR ---
RECEIVED BEDSIDE REPORT FROM AUTHORIZATION MANAGER RN. PT IS DROWSY, FOLLOWS SIMPLE COMMANDS. AFEBRILE. DENIES PAIN. SINUS RHYTHM ON MONITOR. S1 S2 HEARD. PULSES PALPABLE TO ALL EXTREMITIES. CAP REFILL < 2 SEC. PT IS ON BIPAP 14/6, FIO2 40%, RR 18. BREATHING EVEN AND UNLABORED. TACHYPNEIC, PT IS BREATHING AT RR 31 SPO2 99%. WHEEZES HEARD BILATERALLY. NO SIGNS OF RESPIRATORY DISTRESS NOTED AT THIS TIME. ABDOMEN SOFT, FLAT, NONTENDER WITH ACTIVE BOWEL SOUNDS X 4 QUADRANTS. PERIPHERAL IVS G 20 TO RIGHT FOREARM AND ANOTHER PERIPHERAL IV TO RIGHT HAND PATENT AND INTACT. PT IS ON IVF D5NS AT 75 ML/HR. SKIN IS DRY AND WARM TO TOUCH. SMALL OPEN SKIN IN SACRAL COCCYX AREA NOTED. HOB AT 30 DEGREES. BED IN LOWEST POSITION LOCKED. CALL LIGHT WITHIN REACH. NO SIGNS OF DISTRESS NOTED AT THIS TIME. WILL CONTINUE TO MONITOR.
[2019-04-04] MEDS: hydrALAZINE 25 MG TAB PO SCH ×3 (08:26→16:48)
[2019-04-04] MEDS: ECOTRIN 81 MG TABEC PO SCH (08:30)
[2019-04-04] MEDS: methylPREDNISolone SS 40 MG/ML VIAL IVP SCH (08:31)
[2019-04-04] MEDS: ENOXAPARIN 30 MG/0.3 ML SYR SUBQ SCH (08:32)
--- NOTE | 2019-04-04 09:19 | NUR ---
RECIIVED PT ON BIPAP WITH SETTINGS CHARTED BREATH SOUNDS PRESENT BILAT REMOVED PT FROM BIPAP PLACED ON NC AT 3LPM NC
--- NOTE | 2019-04-04 09:35 | NUR ---
DR. VALDEZ IN TO SEE PT. WILL FOLLOW UP ON ORDERS.
--- NOTE | 2019-04-04 11:17 | NUR ---
PT IS DROWSY, EYES CLOSED, AROUSABLE TO NAME, ANSWERS QUESTIONS BY NODDING/SHAKING HEAD. SAFETY PRECAUTIONS IN PLACE. CALL LIGHT WITHIN REACH. WILL CONTINUE TO MONITOR.
[2019-04-04] MEDS: DEXT 5% /NACL 0.9% 1,000 ML IV SCH (12:01)
--- NOTE | 2019-04-04 13:15 | NUR ---
PT HAVING LUNCH. NEEDS 1:1 TOTAL ASSISTANCE WITH FEEDING. STILL DROWSY BUT ABLE TO SWALLOW MECHANICAL SOFT, THIN LIQUID DIET WITHOUT ANY DIFFICULTY. HOB ELEVATED 60 DEGREES. NO COUGHING OR ANY DISTRESS NOTED. WILL CONTINUE TO MONITOR.
--- NOTE | 2019-04-04 15:07 | NUR ---
NO CHANGE IN CONDITION AT THIS TIME. PT IS DROWSY, FLACC 0. AFEBRILE. ON O2 VIA NASAL CANNULA, RR 33, SPO2 98%. NO S/SX OF ACUTE DISTRESS NOTED AT THIS TIME. SAFETY MEASURES ENSURED. WILL CONTINUE TO MONITOR.
--- NOTE | 2019-04-04 15:30 | NUR ---
PT'S SHALLOW BREATHING AND RR IN LOW 40'S. RT MADE AWARE. WILL CONTINUE TO MONITOR.
--- NOTE | 2019-04-04 15:35 | NUR ---
PLACED PATIENT BACK ON BIPAP, WILL CONTINUE TO MONITOR.
--- NOTE | 2019-04-04 15:38 | NUR ---
DISCHARGE PLANNIN79 Y/O FEMALE FROM HOME, WHO CAME IN DUE TO SOB. PAST MEDICAL HISTORY INCLUDE HTN, USUAL INTERSTITIAL PNEUMONITIS AND PULMONARY FIBROSIS, BORDERLINE DIABETES, MALNUTRITION AND OSTEOARTHRITIS. INITIAL DIAGNOSIS OF CHF EXACERBATION. CURRENT LABS INCLUDE WBC 10.9, H/H 10.0/31.9, NA/K 143/3.8, BUN/CREA 60/1.2, TROP 0.388. CURRENT MEDS INCLUDE SOLU-MEDROL AND ZOSYN. WOUND CONSULT IN PLACE. BLOOD C/S PENDING. URINE CULTURE NORMAL. CXR SHOWED EXTENSIVE RETICULONODULAR SCARRING AND PROBABLE HONEYCOMBING, COMPATIBLE WITH USUAL INTERSTITIAL PNA. NO DEFINITE SUPERIMPOSED FOCAL CONSOLIDATION AND S/P CABG. DC PLAN PENDING ON PATIENT'S RESPONSE TO TREATMENT. Addendum: 04/05/19 at 1210 by Alise Manuel DC PLANNING: PT ON O2 3L/NC , CONTINUE IV ABX STEROID AND BRONCHODILATORS. DC PLANING TO GO HOME WHEN STABLE CM TO FOLLOW
--- NOTE | 2019-04-04 16:00 | NUR ---
talk to patient son BARNEY REYES [[phone]] BY PHONE HE SAID HIS MOTHER WAS ON HOSPICE CARE BEFORE SHE CAME TO HOSPITAL. NOW HE WISH HER TO BE DO NOT RESUSCITATION CODE AND GO BACK TO HOSPICE CARE AT HOME. HE WILL COME TO SEE HER THIS EVENING. DR. VALDEZ AWARE. ORDER THE PATIENT TO BE DO NOT RESUSCITATION CODE.
--- NOTE | 2019-04-04 17:30 | NUR ---
REMOVED PT FROM BIPAP
--- NOTE | 2019-04-04 18:00 | NUR ---
TURNED AND REPOSITIONED PT. PRESSURE AREAS OFF LOADED. PT TOLERATED WELL. PT IS STILL LETHARGIC AND DROWSY. DOES NOT FOLLOW COMMANDS. VSS. SAFETY PRECAUTIONS IN PLACE. PT'S FRIEND NADIR AT BEDSIDE. PER NADIR, HE IS STILL TRYING TO GET CONTACT INFO FOR PT'S MOTHER AND SISTER AT THIS TIME.
--- NOTE | 2019-04-04 19:30 | NUR ---
RECEIVED REPORT FROM MORNING RN, EDE, FOR CONTINUITY OF CARE. VS STABLE AT THIS TIME. PT AWAKE. ABLE TO MAKE NEEDS KNOWN AND FOLLOW SIMPLE COMMANDS. PT TURKISH SPEAKING ONLY. LUNG SOUNDS COARSE. RESPIRATIONS EVEN AND UNLABORED. CHEST RISE SYMMETRIC. S1+S2 HEARD. PULSES PALPABLE IN ALL EXTREMITIES. SR ON MONITOR. BP WNL. ABDOMEN ROUND, SOFT AND NONDISTENDED. BS ACTIVE IN ALL QUADRANTS. MCKENZIE CATHETER IN PLACE DRAINING CLEAR AND YELLOW URINE. PT HAS PERIPHERAL IV ACCESS OF RIGHT FOREARM 20G AND RIGHT HAND 20G. D5NS RUNNING AT 40ML/HR. SKIN IS WARM AND DRY TO TOUCH. PT TURNED AND REPOSITIONED. ALL SAFETY PRECAUTIONS ARE IN PLACE.
--- NOTE | 2019-04-04 19:32 | NUR ---
REPORT GIVEN TO QUILL WORKER RN FOR CONTINUITY OF CARE. PT IS IN STABLE CONDITION.
--- NOTE | 2019-04-04 21:00 | NUR ---
PT'S SON AT BEDSIDE. HE LEFT THE NUMBER FOR [facility] . ACCORDING TO PT'S SON, HE WANTS HIS MOM TO BE BACK ON HOSPICE AFTER DISCHARGE FROM HOSPITAL.
--- NOTE | 2019-04-04 22:32 | NUR ---
PT TRANSFERRED TO TELEMETRY. ALL PT BELONGINGS TRANSFERRED WITH HER. VS STABLE AT THIS TIME. PT AWAKE. ABLE TO MAKE NEEDS KNOWN
--- NOTE | 2019-04-04 22:36 | NUR ---
RECIEVED FROM ICU /RLINCOLN , ON O2 AT 2LPM/NC , W/ FC DRAINING CLEAR U.O AAOX2 , NID O2 SAT -WNL , WITH BEGINNING PRESSURE ULCER - ON HYDRAGARD , IV SITES INTACT AND PATENT . ON SAFETY / FALL PRECAUTION PROTOCOL . PLAN OF CARE DISCUSSED BUT POOR UNDERSTANDING DUE TO MENTAL STATUS - WILL CONT. TO MONITOR.
--- NOTE | 2019-04-04 22:36 | NUR ---
REPORT GIVEN TO JEANETH JAVIER. ENDORSED THE PLAN TO HAVE PT ON HOSPICE AND DISCHARGE TO HOME. [facility] PHONE NUMBER IN PT'S CHART.
[2019-04-05] VITALS: BP 150/60
[2019-04-05] MEDS: PIPERACILLIN/TAZOBACTAM 2.25 GM in DEXTROSE 5% 50 ML IV SCH ×4 (00:37→17:48)
[2019-04-05] MEDS: Z-GUARD PASTE TP SCH ×2 (01:02→13:14)
--- NOTE | 2019-04-05 02:00 | NUR ---
MADE ROUNDS . NO S/SXS OF DISTRESS NOTED AT THIS TIME , OS SAT WNL. WILL CONT. TO MONITOR.
[2019-04-05 04:00] VITALS: BP 140/76
--- NOTE | 2019-04-05 04:00 | NUR ---
SLEEPING - CHEST RISE AND FALL EQUALLY , WILL CONT. TO MONITOR.
--- NOTE | 2019-04-05 06:00 | NUR ---
MADE ROUNDS . O2 SAT WNL - GAVE THIN LIQ SHE REQUESTED . ASSISTED IN DRINKING - WITH SAP - WILL CONT. TO MONITOR.
[2019-04-05 06:11] LABS: BASOPHILS % (AUTO) 0.2 % (0.0-2.0); EOSINOPHILS % (AUTO) 0.2 % (0.0-4.0); HEMATOCRIT 34.6 % (36-48); HEMOGLOBIN 10.9 g/dL (12.0-16.0); LYMPHOCYTES # (AUTO) 1.7 K/uL (2.5-16.5); LYMPHOCYTES % (AUTO) 17.5 % (20.5-51.1); MEAN CORPUSCULAR HEMOGLOBIN 27 pg (27-31); MEAN CORPUSCULAR HGB CONC 32 g/dL (33-37); MEAN CORPUSCULAR VOLUME 84.6 fL (80-94); MONOCYTES # (AUTO) 0.6 K/uL (0.8-1.0); MONOCYTES % (AUTO) 6.2 % (1.7-9.3); NEUTROPHILS # (AUTO) 7.2 K/uL (1.8-7.7); NEUTROPHILS % (AUTO) 75.9 % (42.2-75.2); PLATELET COUNT (AUTO) 233 K/uL (140-450); RED BLOOD CELL COUNT(AUTO) 4.09 MIL/uL (4.20-5.40); RED CELL DISTRIBUTION WIDTH 15.6 % (11.6-13.7); WHITE BLOOD COUNT (AUTO) 9.5 K/uL (4.8-10.8)
[2019-04-05 06:19] LABS: ANION GAP 7.2 (8-16); CARBON DIOXIDE 35.5 mmol/L (21-32); CHLORIDE 107 mmol/L (98-107); GLUCOSE 90 mg/dL (74-106); POTASSIUM 3.7 mmol/L (3.5-5.1); SODIUM SERUM 146 mmol/L (136-145); UREA NITROGEN, BLOOD 48 mg/dL (7-18)
--- NOTE | 2019-04-05 07:30 | NUR ---
ENDORSED TO AM SHIFT FOR CONT. OF CARE W/STABLE CONDITION - OS SAT WNL.
--- NOTE | 2019-04-05 07:31 | NUR ---
RECEIVED REPORT FROM THE SURGICAL TERRITORY MANAGER NURSE. PT IS AWAKE AND ORIENTED X1. PT IS CONFUSED TODAY. RAPID, SHALLOW, GRUNTING BREATHING. RESPIRATORY RATE OVER 52. O2 SAT 96% ON 2L VIA NC. PT IS BEDREST. ON TELE. PT HAS A MCKENZIE CATH. IV ON L FA 24G D5NS AT 40ML/HR. WILL CONTINUE TO MONITOR PT.
[2019-04-05 08:00] VITALS: BP 188/89
[2019-04-05] MEDS: ECOTRIN 81 MG TABEC PO SCH (08:42)
[2019-04-05] MEDS: hydrALAZINE 25 MG TAB PO SCH ×3 (08:42→17:48)
[2019-04-05] MEDS: DEXT 5% /NACL 0.9% 1,000 ML IV SCH (08:43)
[2019-04-05] MEDS: methylPREDNISolone SS 40 MG/ML VIAL IVP SCH (08:43)
[2019-04-05] MEDS: ENOXAPARIN 30 MG/0.3 ML SYR SUBQ SCH (08:43)
--- NOTE | 2019-04-05 08:50 | NUR ---
ADMINISTERED MORNING MEDS. PT IS EATING BREAKFAST. TOLERATED WELL. CAREGIVER AT BEDSIDE. WILL CONTINUE TO MONITOR PT.
--- NOTE | 2019-04-05 08:50 | NUR ---
ADMINISTERED MORNING MEDS. CAREGIVER IS HERE. FED PT BREAKFAST. PT TOLERATED WELL. WILL CONTINUE TO MONITOR PT.
--- NOTE | 2019-04-05 10:36 | NUR ---
PT CONFUSED BUT IS HYPERVENTILATING, RAPID BREATHING. REFUSES THE NC. PULLING IT OFF. WANTS TO GO HOME. LOOKS AGITATED. WILL GIVE HER SOME ATIVAN.
[2019-04-05] MEDS: LORazepam 2 MG/ML VIAL IVP PRN ×2 (10:41→19:05)
[2019-04-05] MEDS: ALBUTEROL 0.083% 2.5 MG/3 ML NEBU INH PRN ×2 (11:09→11:25)
--- NOTE | 2019-04-05 11:09 | NUR ---
R/T IS HERE TO GIVE PT BREATHING TX. WILL CONTINUE TO MONITOR PT.
--- NOTE | 2019-04-05 11:10 | NUR ---
HANDBAG FRAMES INSPECTOR CALLED TO BEDSIDE PATIENT PRESENTING WITH INCREASED SOB AT 56 BPM BREATH SOUNDS COARSE RHONCHI BILATERAL SATURATION 95% IN SUPPLEMENTAL OXYGENT AT 2 LPM VIA NC USING STERILE TECHNIQUE NASOTRACHEAL SUCTION FOR COPIOUS THICK YELLOW SECRETION SPUTUM SAMPLE COLLECTED PROCESSED TO LAB [facility] THERAPY AND RESPIRATORY DRUG (UD ALBUTEROL X 2) ONGOING DURING NASOTRACHEAL SUCTION FOR PREVENTION OF BRONCHOSPASM WITH FACILITATION OF COUGH WITH SPUTUM PRODUCTION VIA SPONTANEOUS EXPECTORATION HANDBAG FRAMES INSPECTOR TO MONITOR EMRE/JEANETH AWARE
[2019-04-05 12:00] VITALS: BP 129/63
--- NOTE | 2019-04-05 15:28 | NUR ---
04/05/19 RD FOLLOW UP COMPLETED PLEASE REFER TO NUTRITION ASSESSMENT UNDER CARE ACTIVITY FOR ESTIMATED NUTRITIONAL NEEDS. 1. CONTINUE CARDIAC MECHANICAL SOFT WITH GLUCERNA BID TOLERATED 2. RECOMMEND MVI/VIT C FOR WOUND HEALING. 3. RD TO FOLLOW-UP 2-3 DAYS, HIGH RISK SVITLANA JIMENEZ, RD
[2019-04-05 16:00] VITALS: BP 161/76
--- NOTE | 2019-04-05 17:32 | NUR ---
Electro Optical Engineer Note: Per JEANETH Nair, [facility] is unsure if they will be able to pay/arrange for transportation for patient and patient's family is not able to pay or assist with transportation, I informed sales floor manager Isabela Saunders from [employer] Sales Dept made aware and stated transportation can be paid by hospital, JEANETH Nair made aware.
--- NOTE | 2019-04-05 17:54 | NUR ---
DC ORDERS RECEIVED FROM DR VALDEZ. PT IS TO GO HOME WITH [facility]. TRANSPORTATION WILL BE [facility]. [employer] TIME AT 2100. DC PROCESS STARTED. WILL ENDORSE DC TO LOAN PROCESSOR NURSE. FAMILY WAS HERE. EXPLAINED TO THEM THE PLAN. FAMILY WILL GO HOME AND GET READY FOR HER DROP OFF. PT IS MADE AWARE. WILL CONTINUE TO MONITOR PT.
--- NOTE | 2019-04-05 19:20 | NUR ---
PT REALLY AGITATED, ANXIOUS TO GO HOME. ADMINISTERED ATIVAN. PT BREATHING STILL SHALLOW BUT BETTER. RESTING COMFORTABLY. WILL ENDORSE PT TO THE SET UP OPERATOR TOOL NURSE. PT IN STABLE CONDITION.
--- NOTE | 2019-04-05 19:30 | NUR ---
RECEIVED REPORT FORM EMRE ERIC DAYSHIFT NURSE AT BEDSIDE FOR CONTINUITY OF CARE, PT IS AOX1 BENGALI SPEAKING.PT SITTING UP IN LOW BED WITH 4 LITERS OF 02 ON. IV SITE ON LEFT F/A INTACT AND RUNNING FLUIDS TO D51/2 NS TO KEEP VEIN OPEN. SKIN INTACT EXCEPT FOR VERY SMALL SACRAL OPENING. V/S FOLLOWS: T 97.4 P 74 R 18 B/P 162/76 02 98% WITH 4 LITERS VIA N/C. RR/ 38.PT IN LOW BED WITH ALL CONTACT PRECAUTIONS IN PLACE.
--- NOTE | 2019-04-05 20:20 | NUR ---
[employer] CALLED TO SAY THEY WOULD BE 45 MINUTES LATE AND SHOULD BE HERE AT 9635.
--- NOTE | 2019-04-05 21:15 | NUR ---
PT WAS TURNED, CHANGED AND REPOSITIONED IN BED. PT MUMBLING TO SELF, BUT DOESN'T APPEAR TO BE IN ANY PAIN OR DISTRESS, AL FALLS PRECAUTIONS IN PLACE.
--- NOTE | 2019-04-05 21:45 | NUR ---
[facility] HERE, PT HAD NO DNR POLST, GRANDDAUGHTER MADE AWARE THAT CPR MAY BE PERFORMED IN TRANSPORT DUE TO NO DOCTOR'S ORDERS FOR A DNR, GRANDDAUGHTER VERBALIZED UNDERSTANDING. PT LEFT VIA GURNEY ESCORTED BY 2 EMT'S, IN STABLE CONDITION, BELONGINGS IN HAND. FAMILY AWAITING HER ARRIVAL AT HOME.
== END 2019-04-05 22:15 | disposition hospice, home (50) | DRG 871 ==
LOC: MED 15:35 → MIC 19:09 → MTU 04-04 22:40
PROVIDERS: ADMIT Internal Medicine Pulmonary Disease; ATTEND Internal Medicine Pulmonary Disease
PROC: 5A09357 Assistance with Respiratory Ventilation, Less than 24 Consecutive Hours, Continuous Positive Airway Pressure (ICD-10-PCS; principal; 2019-04-01)
PROC: 5A09357 Assistance with Respiratory Ventilation, Less than 24 Consecutive Hours, Continuous Positive Airway Pressure (ICD-10-PCS; 2019-04-03)
PROC: 5A09357 Assistance with Respiratory Ventilation, Less than 24 Consecutive Hours, Continuous Positive Airway Pressure (ICD-10-PCS; 2019-04-04)
DX: A41.9 Sepsis, unspecified organism (principal); I21.A1 Myocardial infarction type 2; J15.9 Unspecified bacterial pneumonia; J96.21 Acute and chronic respiratory failure with hypoxia; E46 Unspecified protein-calorie malnutrition; G93.40 Encephalopathy, unspecified; Z68.1 Body mass index [BMI] 19.9 or less, adult; R65.20 Severe sepsis without septic shock; I25.10 Atherosclerotic heart disease of native coronary artery without angina pectoris; J84.89 Other specified interstitial pulmonary diseases; Z95.1 Presence of aortocoronary bypass graft; E11.9 Type 2 diabetes mellitus without complications; I10 Essential (primary) hypertension; M19.90 Unspecified osteoarthritis, unspecified site; E86.0 Dehydration; J84.10 Pulmonary fibrosis, unspecified; Z66 Do not resuscitate; Z51.5 Encounter for palliative care; Z79.82 Long term (current) use of aspirin; Z79.899 Other long term (current) drug therapy; R53.81 Other malaise
CPT/HCPCS: 36415; 36600; 71045; 80048; 80053; 81003; 82803; 83605; 83735; 83880; 84484; 85025; 87040; 87070; 87081; 87086; 87205; 89220; 92610; 93005; 94640; 94660; 96361; 96365; 96375; 99285; J0696; J1650; J1940; J2060; J2543; J2920; J2930; J7030; J7042; J7060; J7613; Q0092

== ENCOUNTER 2019-04-08 02:45 | Emergency (ER) | payer BC, OTHER ==
[~2019-04-08] VITALS: Ht 152.4 cm; Wt 40.8 kg
[~2019-04-08 02:45] MED LIST changes: -ACET-9528 PO; -GABA100C PO; +HYDR100T79 PO; +HYDR12.51 PO; -LEVO500T98 PO; +LOSA100T1 PO; -METF500T2 PO; -TRAM50TA1 PO
--- NOTE | 2019-04-08 02:45 | NUR ---
PT RUTH BLS. TAKEN TO BED 5
--- NOTE | 2019-04-08 03:00 | NUR ---
SPOKE WITH NEXT OF KIN, CAESAR MUNSON #[phone], STATES THE PATIENT IS NOT SUPPOSE TO BE IN THE HOSPITAL BECAUSE SHE IS ON HOSPICE. STATES SHE WAS LEFT IN THE CARE OF HER DAUGHTER AND SHE MUST HAVE CALLED 911 BECAUSE SHE DID NOT HAVE FULL UNDERSTANDING OF HOSPICE. STATES SHE WOULD BE CONTACTING THE HOSPICE COMPANY AND WOULD BE ON HER WAY TO THE HOSPITAL.
[2019-04-08 03:05] VITALS: BP 174/86
--- NOTE | 2019-04-08 03:05 | NUR ---
PT 79 Y/O FEMALE BIBGurpreet BLS FROM HOME FOR GENERALIZED WEAKNESS. PT CONFUSED AND ORIENTED TO PERSON. PT RESPIRATIONS ARE EVEN AND UNLABORED. PT ON NC O2 RUNNING CONTINOUSLY @ 5L/MIN. PT O2SAT @ 99%. SKIN IS WARM AND DRY TO TOUCH. PT DENIES PAIN. FC PRESENT ON ARRIVAL. PT APPEARS FRAIL AND THIN. BED LOCK IN LOWEST POSITION. SIDERAILS UP. MEDICAL HX: HTN, ORGAN FAILURE ALLERGIES: NKA
--- NOTE | 2019-04-08 03:08 | NUR ---
GRANDDAUGHTER CALLED BACK TO INFORM US THAT THEY WANT TO REFUSE TREATMENT FOR THE PATIENT AND HAVE HER TRANSPORTED BACK HOME, STATES SHE ALSO SPOKE WITH HER HOSPICE NURSE WHO INSTRUCTED THEM TO HAVE HER TRANSPORTED HOME WITHOUT CARE.
--- NOTE | 2019-04-08 03:36 | NUR ---
[facility] ARRANGED TO TRANSPORT BACK HOME. ETA:11:00 AM.
--- NOTE | 2019-04-08 04:34 | NUR ---
PT RESTING IN BED EYES CLOSED. RESPIRATIONS ARE EVEN AND UNLABORED. PT ON O2 5L/MIN NC. O2SAT @ 100%. SKIN IS WARM AND DRY TO TOUCH. BED LOCKED AND IN LOWEST POSITION. SIDE RAIL UP. WILL CONTINUE TO MONITOR.
--- NOTE | 2019-04-08 04:35 | NUR ---
SPOKE WITH CAESAR MUNSON, GRANDDAUGHTER, WHO STATED HE FATHER (THE PATIENTS SON) WAS ON HIS WAY TO PICK HER UP AND TAKE HER HOME.
--- NOTE | 2019-04-08 04:40 | NUR ---
PT RESTING IN BED, EYES OPEN AND SITTING UPRIGHT. PT RESPIRATIONS ARE EVEN AND UNLABORED. PT ON CONTINOUS O2 @ 5 L/MIN. O2SAT @ 99%. PT MADE AWARE THAT SON IS GOING TO COME PICK HER UP. PT DENIES PAIN, 0/10. PT SKIN IS WARM AND DRY TO TOUCH. PT BED IN LOWEST POSITION AND LOCKED IN PLACE. WILL CONTINUE TO MONITOR.
--- NOTE | 2019-04-08 04:58 | NUR ---
PATIENT SON WITH PATIENT AT BEDSIDE
--- NOTE | 2019-04-08 05:00 | NUR ---
PT TRANSFERED FROM BED TO W/C WITH ASSISTANCE FROM SON. PT HOOKED UP TO O2 ATTCHED TO W/C. PT ON CONTINOUS O2 @ 5 L/MIN. VITAL SIGNS AT PT BASELINE. PT DENIES PAIN. RESPIRATIONS ARE EVEN AND UNLABORED. PT UNABLE TO SIGN D/C PAPERS. SON ABLE TO SIGN D/C PAPERS FOR MOTHER.
--- NOTE | 2019-04-08 05:10 | NUR ---
Patient discharged with v/s stable. Written and verbal after care instructions given and explained TO CAREGIVER. CAREGIVER/Patient verbalized understanding. Wheel Chair Assisted with by caregiver. All questions addressed prior to discharge. Advised to follow up with PMD.
[2019-04-08 05:13] VITALS: BP 186/74
== END 2019-04-08 05:10 | disposition home or self-care (01) ==
LOC: MED 02:45
DX: R53.1 Weakness (principal); I10 Essential (primary) hypertension; Z86.79 Personal history of other diseases of the circulatory system; Z79.899 Other long term (current) drug therapy; Z79.82 Long term (current) use of aspirin; E11.9 Type 2 diabetes mellitus without complications
CPT/HCPCS: 81002; 99283